=== PATIENT | male | born 1965 | race Hispanic/Latino ===

== ENCOUNTER → 2017-08-25 | Day surgery (SDC) | payer OTHER ==
[2017-08-22 13:17] LABS: BASOPHILS % 0.7 % (0.0-1.0); EOSINOPHILS # (AUTO) 0.2 (0.0-0.4); EOSINOPHILS % 3.5 % (0.0-6.0); HEMATOCRIT 40.9 % (38.2-49.6); HEMOGLOBIN 14.5 g/dL (14.0-18.0); MEAN CORPUSCULAR HEMOGLOBIN 31.5 pg (28-32); MEAN CORPUSCULAR HGB CONC 35.5 g/dL (31-35); MEAN CORPUSCULAR VOLUME 88.7 fL (81-99); MONOCYTES # (AUTO) 0.4 (0.2-0.8); MONOCYTES % 6.8 % (4.4-11.3); NEUTROPHILS # (AUTO) 2.4 (2.1-6.9); NEUTROPHILS % 39.8 % (38.7-80.0); PLATELET COUNT 231 x10e3/uL (140-360); RED BLOOD COUNT 4.61 x10e6/uL (4.3-5.7); RED CELL DISTRIBUTION WIDTH 12.3 % (11.7-14.4)
[~2017-08-25] MED LIST: ASPIR-LOW81 MG; CLOPIDOGREL75 MG PO; CRESTOR10 MG; DIAZEPAM10 MG; FENTANYL CITRATE/PF 100MCG/2 ML INJ ONE; HYOSCYAMINE SULFATE 0.5 MG/ML AMP ONE; LIDOCAINE HCL 2% LOCAL INJ 5 ML SDV VIAL INJ ONE; LOSARTAN; METOPROLOL SUCC25 MG; MIDAZOLAM HCL 2 MG/2 ML VIAL ONE; PROPOFOL IV EMULSION 10 MG/ML 50 ML VIAL ONE
--- NOTE | 2017-08-25 15:34 | Operative Report ---
DATE OF PROCEDURE: August 25, 2017 REFERRING PHYSICIAN: Dr. Erasmo Vargas PROCEDURES PERFORMED 1. Esophagogastroduodenoscopy with biopsies. 2. Colonoscopy with polypectomy. INDICATIONS FOR EGD: History of heartburn and indigestion. INDICATIONS FOR COLONOSCOPY: Colorectal cancer screening. MEDICATION: Patient was done under MAC. Please see anesthesiologist's note. PROCEDURE: With the patient in the left lateral decubitus position, the flexible fiberoptic Olympus gastroscope was introduced into the esophagus under direct visualization without any difficulty. There was some patchy erythema noted in the distal esophagus. A minute tongue of velvety red mucosa was noted to extend proximally from the GE junction. Biopsies were obtained to rule out Jacob's. The scope was then advanced with ease into the stomach. Mucosa overlying the antrum and the body revealed some patchy intense erythema and low-grade to moderate edema, and biopsies were obtained and sent to stain for H. pylori. The pylorus was of normal contour and shape. It was intubated with ease. The scope was advanced all the way to the 2nd portion of the duodenum. The scope was then withdrawn slowly. Mucosa overlying the proximal 2nd portion and the duodenal bulb grossly appeared to be within normal limits. The scope was then withdrawn back into the stomach and retroflexed. Mucosa overlying the fundus and cardia appeared to be within normal limits. The scope was then straightened out. The stomach was decompressed. The scope was subsequently withdrawn. Patient tolerated the procedure well. IMPRESSION 1. Distal esophagitis, mild. 2. Rule out Jacob's esophagus. 3. Gastritis, biopsied. Biopsies sent to stain for Helicobacter pylori. PLAN: Follow up histology. Initiate Protonix 40 mg 1 p.o. q.a.m. a.c. Patient was then turned around. After adequate lubrication of the anal canal, a flexible fiberoptic Olympus colonoscope was inserted into the rectum with ease and advanced all the way to the cecum. One polyp was snared from the cecum. The scope was then withdrawn slowly. Mucosa overlying the ascending colon appeared to be within normal limits. One polyp was hot biopsied from the transverse colon. The descending colon grossly appeared to be within normal limits. Diverticular disease was noted to involve the distal descending and the sigmoid colon. Four polyps were hot biopsied from the rectum. The scope was then retroflexed into the distal rectum and small internal hemorrhoids, none actively bleeding. The scope was then straightened out. It was subsequently withdrawn. Patient tolerated the procedure well. IMPRESSION 1. Cecal polyp, snared. 2. Transverse colon polyp, hot biopsied. 3. Diverticulosis. 4. Rectal polyps times 4, hot biopsied. 5. Internal hemorrhoids, none actively bleeding. PLAN: Follow up histology. Initiate high-fiber and low-fat diet. Initiate high-fiber supplement. Patient will need a followup colonoscopy in 3 years. Job#: [id number] [place] cc:ERASMO VARGAS MD
== END | disposition home or self-care (01) ==
LOC: OR 10:59
PROVIDERS: ATTEND Internal Medicine Gastroenterology
DX: Z12.11 Encounter for screening for malignant neoplasm of colon (principal); K63.5 Polyp of colon; K62.1 Rectal polyp; K29.50 Unspecified chronic gastritis without bleeding; K21.9 Gastro-esophageal reflux disease without esophagitis; K20.9 Esophagitis, unspecified; K57.30 Diverticulosis of large intestine without perforation or abscess without bleeding; K64.8 Other hemorrhoids; B96.81 Helicobacter pylori [H. pylori] as the cause of diseases classified elsewhere; I25.10 Atherosclerotic heart disease of native coronary artery without angina pectoris; G47.33 Obstructive sleep apnea (adult) (pediatric); I25.2 Old myocardial infarction; I10 Essential (primary) hypertension; Z01.810 Encounter for preprocedural cardiovascular examination; Z01.812 Encounter for preprocedural laboratory examination; Z79.02 Long term (current) use of antithrombotics/antiplatelets; Z79.82 Long term (current) use of aspirin; Z68.32 Body mass index [BMI] 32.0-32.9, adult; Z95.5 Presence of coronary angioplasty implant and graft
CPT/HCPCS: 36415; 43239; 45384; 45385; 85025; 93005; J1980; J2001; J2250

== ENCOUNTER → 2019-03-15 | Day surgery (SDC) | payer OTHER ==
[2019-03-08 15:30] LABS: BASOPHILS % 0.6 % (0.0-1.0); EOSINOPHILS # (AUTO) 0.1 (0.0-0.4); EOSINOPHILS % 2.5 % (0.0-6.0); HEMATOCRIT 42.2 % (38.2-49.6); HEMOGLOBIN 14.6 g/dL (14.0-18.0); LYMPHOCYTES # (AUTO) 2.5 (1.0-3.2); LYMPHOCYTES % 47.9 % (18.0-39.1); MEAN CORPUSCULAR HEMOGLOBIN 31.5 pg (28-32); MEAN CORPUSCULAR HGB CONC 34.6 g/dL (31-35); MEAN CORPUSCULAR VOLUME 90.9 fL (81-99); MONOCYTES # (AUTO) 0.4 (0.2-0.8); MONOCYTES % 6.8 % (4.4-11.3); NEUTROPHILS # (AUTO) 2.2 (2.1-6.9); PLATELET COUNT 223 x10e3/uL (140-360); RED BLOOD COUNT 4.64 x10e6/uL (4.3-5.7); RED CELL DISTRIBUTION WIDTH 12.9 % (11.7-14.4)
[~2019-03-15] MED LIST changes: +DIPHENHYDRAMINE HCL INJ 50 MG/ML VIAL ONE; +GLYBURIDE-METF1 EACH PO; -HYOSCYAMINE SULFATE 0.5 MG/ML AMP ONE; -LIDOCAINE HCL 2% LOCAL INJ 5 ML SDV VIAL INJ ONE; +METOPROLOL SUCC25 MG PO
--- OUTSIDE RECORDS SUMMARY | 2019-03-15 12:15 | XMS REPORT | Clinical Summary ---
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 9 Active metoprolol (TOPROL-XL) 25 Take 25 mg by 0 /28/201 MG 24 hr tablet mouth daily . 9 Active rosuvastatin (CRESTOR) 10 Take 10 mg by 0 10/05/201 MG tablet mouth daily . 9 Active aspirin 81 MG EC tablet Take 81 mg by 0 mouth daily. Active losartan (COZAAR) 50 MG Take 50 mg by 0 tablet mouth daily. Active metFORMIN (GLUCOPHAGE) Take 1 tablet 60 tablet 0 500 MG tablet (500 mg 9 total) by mouth 2 (two) times daily with breakfast and dinner Note change in diabetes medication. 10/07/2018 Discontinued glyBURIDE-metFORMIN 1 tablet po 1 (GLUCOVANCE) 2.5-500 mg BID 8 per tablet Active Problems Problem Noted Date Chest pain 10/07/2018 Coronary artery disease involving [place] coronary artery of [place] heart 10/07/2018 without angina pectoris Encounters Care Team Description Date Type Specialty Cortez Chambers MD Atherosclerosis of coronary artery of [place] heart with angina pectoris, unspecified vessel or lesion type (HCC) (Primary Dx) 10/09/2018 Outside Orders Central Scheduling System, Provider Not In 10/09/2018 Outside Orders Central Scheduling Vu, Trien B., MD Stanton, Fang-Monica, MD Unstable angina (HCC) (Primary Dx); Coronary artery disease involving [place] coronary artery, angina presence unspecified, unspecified whether [place] or transplanted heart; Hypertension, unspecified type; History of diabetes mellitus; Lightheadedness; Unstable angina pectoris (HCC) 10/05/2018 Hospital Cardiac Intensive Care - Encounter 10/07/2018 10/05/2018 Orders Only General Internal Medicine 10/05/2018 Travel after 03/14/2018 Social History Date Tobacco Use Types Packs/Day Years Used Never Assessed Sex Assigned at Date Recorded Not on file Industry Job Start Date Occupation Not on file Not on file Not on file Travel End Travel History Travel Start No recent travel history available. Last Filed Vital Signs Time Taken Vital Sign Reading 10/07/2018 11:00 AM [facility]RAFTER [facility] Blood Pressure 109/76 10/07/2018 12:00 PM [facility] Pulse 71 10/07/2018 8:00 AM [facility]AIL Temperature 36.7 C (98 F) 10/07/2018 12:00 PM [facility]AIL Respiratory Rate 15 10/07/2018 12:00 PM [facility]AIL Oxygen Saturation 97% 10/05/2018 5:23 PM [facility]AIL Inhaled Oxygen 96% Concentration 10/07/2018 6:00 AM [facility]AIL Weight 94.1 kg (207 lb 7.3 oz) 10/05/2018 4:36 PM [facility] [employer] Height 172.7 cm (5' 8") 10/07/2018 6:00 AM [facility]AIL Body Mass Index 31.54 Plan of Treatment Not on file Procedures Comments Procedure Name Priority Date/Time Associated Diagnosis REPORT OF PROCEDURE - 10/24/2018 ENDOSCOPY SCAN 10:31 AM [facility]AIL RHYTHM STRIP - SCAN 10/24/2018 10:31 AM [facility]AIL POCT-GLUCOSE METER Routine 10/07/2018 8:01 AM D[facility]TER DETAIL APTT Routine 10/07/2018 6:05 AM [facility]AIL BASIC METABOLIC PANEL (7) Routine 10/07/2018 6:05 AM [facility]AIL APTT Routine 10/07/2018 12:[address] BRAIN WITHOUT IV Routine 10/06/2018 CONTRAST 11:57 PM [facility]AIL POCT-GLUCOSE METER Routine 10/06/2018 9:06 PM [facility] [employer]AIL POCT-GLUCOSE METER Routine 10/06/2018 5:49 PM [facility]AIL APTT Routine 10/06/2018 5:35 PM [facility]AIL RAPID DRUG SCREEN, URINE Routine 10/06/2018 3:34 PM [facility]AIL ECHOCARDIOGRAM REPORT - 10/06/2018 SCAN 12:50 PM [facility]AIL NM CARDIAC PET PERFUSION JOSHUA 10/06/2018 REST AND/OR STRESS 12:13 PM [facility]AIL TREADMILL Routine 10/06/2018 TOLERANCE(NON-NUCLEAR 11:48 AM DRAFTER DETAIL TREADMILL) ECG 12-LEAD Routine 10/06/2018 11:45 AM [facility]TER DETAIL ECG 12-LEAD Routine 10/06/2018 11:45 AM [facility]TER [facility]AIL Procedure Note - Interface, External Ris In - 10/06/2018 12:00 PM [facility]TER [facility]AIL Ventricula r Rate 71 BPM Atrial Rate 71 BPM P-R Interval 198 ms QRS Duration 90 ms Q-T Interval 404 ms QTC Calculatio n(Bazett) 439 ms P [place] 68 degrees R [place] 33 degrees T [place] 69 degrees Normal sinus rhythm Nonspecifi c ST and T wave abnormalit y Abnormal ECG CBC W/PLT COUNT & AUTO Routine 10/06/2018 DIFFERENTIAL 6:12 AM [facility]TER [facility]AIL APTT Routine 10/06/2018 6:12 AM [facility]AIL CBC W/PLT COUNT & AUTO Routine 10/06/2018 DIFFERENTIAL 6:12 AM [facility]AIL MAGNESIUM Routine 10/06/2018 6:12 AM [facility]AIL LIPID PANEL Routine 10/06/2018 6:12 AM [facility]AIL HEMOGLOBIN A1C AP Routine 10/06/2018 6:12 AM [facility]AIL HEPATIC FUNCTION PANEL Routine 10/06/2018 6:12 AM [facility]AIL BASIC METABOLIC PANEL (7) Routine 10/06/2018 6:12 AM [facility]AIL 2D ECHO W/ DOPPLER Routine 10/06/2018 (CW/PW/COLOR) 3:04 AM [facility]AIL CAROTID DOPPLER BILATERAL Routine 10/05/2018 11:29 PM [facility]AIL APTT Routine 10/05/2018 11:19 PM [facility]AIL TROPONIN I Routine 10/05/2018 11:19 PM [facility]AIL POCT-GLUCOSE METER Routine 10/05/2018 11:17 PM [facility]AIL XR CHEST 1 VIEW STAT 10/05/2018 PORTABLE/BEDSIDE 5:22 PM [facility]AIL ED ECG INTERPRETATION Routine 10/05/2018 4:50 PM [facility]AIL CBC W/PLT COUNT & AUTO STAT 10/05/2018 DIFFERENTIAL 4:49 PM [facility]AIL CREATINE KINASE (CK) STAT 10/05/2018 4:49 PM [facility]AIL B-TYPE NATRIURETIC FACTOR STAT 10/05/2018 (BNP) 4:49 PM [facility]TER [facility]AIL PT/APTT STAT 10/05/2018 4:49 PM [facility]AIL CBC W/PLT COUNT & AUTO STAT 10/05/2018 DIFFERENTIAL 4:49 PM [facility]TER DETAIL TROPONIN I STAT 10/05/2018 4:49 PM [facility]AIL MAGNESIUM STAT 10/05/2018 4:49 PM [facility]AIL BASIC METABOLIC PANEL (7) STAT 10/05/2018 4:49 PM [facility]AIL ECG 12-LEAD Routine 10/05/2018 4:40 PM [facility]AIL Procedure Note - Interface, External Ris In - 10/05/2018 5:08 PM [facility]AIL Ventricula r Rate 87 BPM Atrial Rate 87 BPM P-R Interval 166 ms QRS Duration 90 ms Q-T Interval 364 ms QTC Calculatio n(Bazett) 438 ms P [place] 35 degrees R [place] -55 degrees T [place] -4 degrees Normal sinus rhythm Indetermin ate axis Inferior infarct , age undetermin ed Anterolate ral infarct , age undetermin ed Abnormal ECG ECG 12-LEAD STAT 10/05/2018 4:40 PM [facility]TER DETAIL after 03/14/2018 Results * EKG-SCANNED (10/24/2018 10:31 AM [facility]) Narrative Performed At * RHYTHM STRIP - SCAN (10/24/2018 10:31 AM [facility]AIL) Narrative Performed At * POC-Glucose meter (10/07/2018 8:01 AM [facility]TER [facility]AIL) Only the most recent of 4 results within the time period is included. POC-Glucose Meter 133 (H)Comment: TESTED AT 70 - 110 mg/dL [address] [id number] Specimen Blood Performing Organization Address City/[facility] Phone Number [address] [phone] [facility] * aPTT (10/07/2018 6:05 AM DRAFTER DETAIL) Only the most recent of 5 results within the time period is included. PTT 89.9 (H) 22.5 - 36.0 seconds [facility] Specimen Blood Performing Organization Address City/[facility] Phone Number [address] [phone] [facility] * Basic Metabolic Panel (10/07/2018 6:05 AM [facility]TER DETAIL) Only the most recent of 3 results within the time period is included. Sodium 141 136 - 145 meq/L [facility] Potassium 3.9 3.5 - 5.1 meq/L [facility] Chloride 107 98 - 107 meq/L [facility] CO2 27 22 - 29 meq/L [facility] BUN 13 7 - 21 mg/dL [facility] Creatinine 0.98 0.57 - 1.25 mg/dL [facility] Glucose 136 (H) 70 - 105 mg/dL [facility] Calcium 8.8 8.4 - 10.2 mg/dL [facility] EGFR 80Comment: ESTIMATED GFR IS mL/min/1.73 sq m [facility] NOT ACCURATE CREATININE [facility] CLEARANCE IN PREDICTING GLOMERULAR FILTRATION RATE. ESTIMATED GFR IS NOT APPLICABLE FOR DIALYSIS PATIENTS. Specimen Blood Performing Organization Address City/State/Zipcode Phone Number [facility] [address] [place] [address] MEDICAL CENTER * CT brain without IV contrast (10/06/2018 11:57 PM [facility]TER [employer]AIL) Specimen Narrative Performed At FINAL REPORT [facility] RIS CT, BRAIN, WITHOUT CONTRAST CLINICAL INDICATION:dizziness COMPARISON: None TECHNIQUE:Noncontrast axial CT imaging of the brain and skull. DOSE REDUCTION: Dose modulation, iterative reconstruction, and/or weight-based adjustment of the mA/kV was utilized to reduce the radiation dose to as low as reasonably achievable. FINDINGS: No intracranial hemorrhage, midline shift or mass effect. Midline structures are normally developed. Mild chronic microvascular ischemic changes of the periventricular and subcortical white matter present. Punctate focus of mineralization is identified adjacent to the left lateral ventricle, of uncertain significance but perhaps related to prior granulomatous disease or intraventricular infection. The vasogenic edema to suggest acute infection. No hydrocephalus. Orbits are within normal limits. No obstructive paranasal sinus disease. IMPRESSION: No acute intracranial findings If there is persistent clinical concern for intracranial pathology, MR examination is recommended for further characterization. Signed: Reagan Montez MD Report Verified Date/Time:10/07/2018 01:39:44 Reading Location: [address] Neuro Reading Room Procedure Note Interface, External Ris In - 10/07/2018 1:41 AM DRAFTER DETAIL FINAL REPORT CT, BRAIN, WITHOUT CONTRAST CLINICAL INDICATION: dizziness COMPARISON: None TECHNIQUE: Noncontrast axial CT imaging of the brain and skull. DOSE REDUCTION: Dose modulation, iterative reconstruction, and/or weight-based adjustment of the mA/kV was utilized to reduce the radiation dose to as low as reasonably achievable. FINDINGS: No intracranial hemorrhage, midline shift or mass effect. Midline structures are normally developed. Mild chronic microvascular ischemic changes of the periventricular and subcortical white matter present. Punctate focus of mineralization is identified adjacent to the left lateral ventricle, of uncertain significance but perhaps related to prior granulomatous disease or intraventricular infection. The vasogenic edema to suggest acute infection. No hydrocephalus. Orbits are within normal limits. No obstructive paranasal sinus disease. IMPRESSION: No acute intracranial findings If there is persistent clinical concern for intracranial pathology, MR examination is recommended for further characterization. Signed: Reagan Mnotez MD Report Verified Date/Time: 10/07/2018 01:39:44 Reading Location: [facility] [id number] Neuro Reading Room Performing Organization Address [facility] Phone Number GE RIS * Rapid drug screen, urine (10/06/2018 3:34 PM [facility]TER DETAIL) Barbiturate Screen Negative Negative [facility] Benzodiazepine Screen Negative Negative [facility] Cocaine (Metab.) Screen Negative Negative [facility] Methadone Screen Negative Negative [facility] Opiate Screen Negative Negative [facility] Cannabinoid Screen Negative Negative [facility] Amph/Methamph Screen Negative Negative [facility] Phencyclidine Screen Negative Negative [facility] Oxycodone Screen Negative Negative [facility] Specimen Urine Narrative Performed At [facility] Cocaine 300 ng/mL [facility] Rtuhdlhgdbi73 ng/mL Rshnzaayozlock206 ng/mL Barbiturate 200 ng/mL Ofdmhcpouuruo85 ng/mL Fgvuqc600 ng/mL Methadone 300 ng/mL Amphetamine/ 1000 ng/mL Methamphetamine Oxycodone 300 ng/mL This assay provides an unconfirmed qualitative test result for the clinical management of patients in emergency situations. Chain of custody not maintained. Some yvln-ckf-padomel medications, as well as adulterants, may cause inaccurate results. Clinical correlation should be applied. A more comprehensive drug screen or confirmation of a detected drug may be performed upon request. Performing Organization Address City/[facility]/Zipcode Phone Number [facility] [address] [place] [address] [facility] * ECHOCARDIOGRAM REPORT - SCAN (10/06/2018 12:50 PM [facility]TER [facility]AIL) Narrative Performed At * NM myocardial perfusion PET (rest and stress) (10/06/2018 12:13 PM [facility]TER DETAIL) Specimen Narrative Performed At FINAL REPORT [employer] PROCEDURE: Rest/Stress MYOCARDIAL PERFUSION PET with regadenoson\\XA9\\ CPT CODE: 50348 INDICATION: Chest pain HISTORY: Cardiac risk factors: Diabetes, hypertension, hyperlipidemia. Other cardiovascular history: Known CAD, PTCA. Current cardiovascular-related medications: Crestor, aspirin, Plavix, losartan, metoprolol. PROTOCOL: Limited low-dose CT imaging was performed for attenuation correction. 40.0 mCi of Rb-82 chloride was injected iv at rest, and gated PET (positron emission tomography) images were obtained. Subsequently, 40.1 mCi of Rb-82 chloride was injected iv at expected peak pharmacologic effect, and gated PET images were obtained. PRELIMINARY STRESS TEST DATA FROM NONINVASIVE CARDIOLOGY: Pharmacologic stress was by 10-second iv infusion of 0.4 mg of regadenoson. Radiotracer was injected 30 seconds after start of stress. Heart rate was 71 beats/min at rest and 104 beats/min (61% of MPHR) at tracer injection. BP was 124/71 mmHg at rest and 125/72 mmHg at tracer injection. Stress was stopped for predetermined endpoint. The patient experienced dyspnea; treatment was not required. Preliminary ECG evaluation revealed normal sinus rhythm, nonspecific ST and T wave abnormality at rest and no ischemic changes with stress. (Final ECG interpretation and other stress and monitoring data are reported separately by Cardiology.) IMAGING FINDINGS: Study quality is good. Images obtained after rest and stress injections show normal LV activity. LV and RV volumes appear normal. Gated images obtained at rest and with stress show normal LV wall motion and thickening. LVEF at rest is 69%. LVEF at stress is greater than 70%. IMPRESSION: 1. Normal study.2. Appropriate pharmacologic stress.3. Normal myocardial perfusion.4. Normal resting LV function. No deterioration of function is noted with pharmacologic stress.5. Normal extracardiac tracer distribution.6. The previous [facility] study on 07/10/2017 was also normal. NONINVASIVE RISK STRATIFICATION: The above findings are considered low risk (<1% annual mortality rate) based on the following criterion: - Normal or small myocardial perfusion defect at rest or with stress (JACC. 2012;59(9):655-31.) Signed: Austin Lioa MD Report Verified Date/Time:10/06/2018 17:01:02 Reading Location: [address] [id number] [facility] Reading Room Procedure Note Interface, External Ris In - 10/06/2018 5:03 PM DRAFTER DETAIL FINAL REPORT PROCEDURE: Rest/Stress MYOCARDIAL PERFUSION PET with regadenoson\\XA9\\ CPT CODE: 53092 INDICATION: Chest pain HISTORY: Cardiac risk factors: Diabetes, hypertension, hyperlipidemia. Other cardiovascular history: Known CAD, PTCA. Current cardiovascular-related medications: Crestor, aspirin, Plavix, losartan, metoprolol. PROTOCOL: Limited low-dose CT imaging was performed for attenuation correction. 40.0 mCi of Rb-82 chloride was injected iv at rest, and gated PET (positron emission tomography) images were obtained. Subsequently, 40.1 mCi of Rb-82 chloride was injected iv at expected peak pharmacologic effect, and gated PET images were obtained. PRELIMINARY STRESS TEST DATA FROM NONINVASIVE CARDIOLOGY: Pharmacologic stress was by 10-second iv infusion of 0.4 mg of regadenoson. Radiotracer was injected 30 seconds after start of stress. Heart rate was 71 beats/min at rest and 104 beats/min (61% of MPHR) at tracer injection. BP was 124/71 mmHg at rest and 125/72 mmHg at tracer injection. Stress was stopped for predetermined endpoint. The patient experienced dyspnea; treatment was not required. Preliminary ECG evaluation revealed normal sinus rhythm, nonspecific ST and T wave abnormality at rest and no ischemic changes with stress. (Final ECG interpretation and other stress and monitoring data are reported separately by Cardiology.) IMAGING FINDINGS: Study quality is good. Images obtained after rest and stress injections show normal LV activity. LV and RV volumes appear normal. Gated images obtained at rest and with stress show normal LV wall motion and thickening. LVEF at rest is 69%. LVEF at stress is greater than 70%. IMPRESSION: 1. Normal study. 2. Appropriate pharmacologic stress. 3. Normal myocardial perfusion. 4. Normal resting LV function. No deterioration of function is noted with pharmacologic stress. 5. Normal extracardiac tracer distribution. 6. The previous [facility] study on 07/10/2017 was also normal. NONINVASIVE RISK STRATIFICATION: The above findings are considered low risk (<1% annual mortality rate) based on the following criterion: - Normal or small myocardial perfusion defect at rest or with stress (JAC. 2012;59(9):423-03.) Signed: Austin Liao MD Report Verified Date/Time: 10/06/2018 17:01:02 Reading Location: [address] Reading Room Performing Organization Address City/State/[facility] Phone Number GE RIS * Treadmill tolerance(Non-Nuclear Treadmill) (10/06/2018 11:48 AM DRAFTER DETAIL) Specimen Narrative Performed At Protocol Name Regadenoson GE MUSE Time In Exercise Phase 00:01:00 Max. Systolic BP 125 mmHg Max Diastolic BP 72 mmHg Max Heart Rate 104 BPM Max Predicted Heart Rate 168 BPM Reason For Termination Predetermined end point Reason for Test Chest Pain Target HR Formula (220 - Age)*100% Arrhythmias none Resting ECG Normal sinus rhythm Nonspecific ST and T wave abnormality ST Changes No Significant Changes Overall Impression Indeterminate due to pharmacological stress Chest Pain none HR Response To Exercise BP Response To Exercise crestor,asa,plavix,losartan,metorpolol Confirmed by fellow Mitul Joiner ([id number]) on 10/06/2018 12:59:09 PM Confirmed by Jorge L BERNAL MICHAEL ([id number]) on 10/08/2018 6:57:43 AM Procedure Note Interface, External Ris In - 10/08/2018 6:57 AM DRAFTER DETAIL Protocol Name Regadenoson Time In Exercise Phase 00:01:00 Max. Systolic BP 125 mmHg Max Diastolic BP 72 mmHg Max Heart Rate 104 BPM Max Predicted Heart Rate 168 BPM Reason For Termination Predetermined end point Reason for Test Chest Pain Target HR Formula (220 - Age)*100% Arrhythmias none Resting ECG Normal sinus rhythm Nonspecific ST and T wave abnormality ST Changes No Significant Changes Overall Impression Indeterminate due to pharmacological stress Chest Pain none HR Response To Exercise BP Response To Exercise crestor,asa,plavix,losartan,metorpolol Confirmed by fellow Mitul Joiner ([id number]) on 10/06/2018 12:59:09 PM Confirmed by Jorge L BERNAL MICHAEL ([id number]) on 10/08/2018 6:57:43 AM Performing Organization Address City/State/[facility] Phone Number [facility] DANIELLA * ECG 12 lead (10/06/2018 11:45 AM DRAFTER DETAIL) Only the most recent of 2 results within the time period is included. Specimen Narrative Performed At Ventricular Rate 71 BPM GE MUSE Atrial Rate 71 BPM P-R Interval 198 ms QRS Duration 90 ms Q-T Interval 404 ms QTC Calculation(Bazett) 439 ms P [place] 68 degrees R [place] 33 degrees T [place] 69 degrees Normal sinus rhythm Nonspecific ST and T wave abnormality Abnormal ECG 05 Oct 2018 QRS amplitude decreased in the limb leads T waves are no longer negative inferior leads Nonspecific T wave abnormality improved in V5-V6 Most probably limb lead misplacement in the previous ECG Please repeat Confirmed by MD LUCAS, IRAIDA ([id number]) on 10/06/2018 2:41:56 PM Procedure Note Interface, External Ris In - 10/06/2018 2:42 PM DRAFTER DETAIL Ventricular Rate 71 BPM Atrial Rate 71 BPM P-R Interval 198 ms QRS Duration 90 ms Q-T Interval 404 ms QTC Calculation(Bazett) 439 ms P [place] 68 degrees R [place] 33 degrees T [place] 69 degrees Normal sinus rhythm Nonspecific ST and T wave abnormality Abnormal ECG 05 Oct 2018 QRS amplitude decreased in the limb leads T waves are no longer negative inferior leads Nonspecific T wave abnormality improved in V5-V6 Most probably limb lead misplacement in the previous ECG Please repeat Confirmed by MD LUCAS, IRAIDA ([id number]) on 10/06/2018 2:41:56 PM Performing Organization Address [facility] Phone Number [facility] MUSE * CBC with platelet count + automated diff (10/06/2018 6:12 AM DRAFTER DETAIL) Only the most recent of 2 results within the time period is included. WBC 5.9 3.5 - 10.5 K/L [facility] RBC 4.64 4.63 - 6.08 M/L [facility] Hemoglobin 14.6 13.7 - 17.5 GM/DL [facility] Hematocrit 43.0 40.1 - 51.0 % [facility] MCV 92.7 (H) 79.0 - 92.2 fL [facility] MCH 31.5 25.7 - 32.2 pg [facility] MCHC 34.0 32.3 - 36.5 GM/DL [facility] RDW 12.6 11.6 - 14.4 % [facility] Platelets 180 150 - 450 K/CU MM [facility] MPV 9.2 (L) 9.4 - 12.4 fL [facility] nRBC 0 0 - 0 /100 WBC [facility] % Neutros 40 % [facility] % Lymphs 46 % [facility] % Monos 9 % [facility] % Eos 4 % [facility] % Baso 1 % [facility] # Neutros 2.35 1.78 - 5.38 K/L [facility] # Lymphs 2.66 1.32 - 3.57 K/L [facility] # Monos 0.52 0.30 - 0.82 K/L [facility] # Eos 0.25 0.04 - 0.54 K/L [facility] # Baso 0.04 0.01 - 0.08 K/L [facility] Immature 1 0 - 1 % [facility] Granulocytes-Relative [facility] Specimen Blood Performing Organization Address City/State/Zipcode Phone Number [facility] [address] [place] [address] MEDICAL CENTER * Magnesium (10/06/2018 6:12 AM DRAFTER DETAIL) Only the most recent of 2 results within the time period is included. Magnesium 2.5Comment: Specimen slightly 1.6 - 2.6 mg/dL [facility] hemolyzed [facility] Specimen Blood Performing Organization Address City/State/Zipcode Phone Number [facility] [address] [place] [phone] [facility] * Hemoglobin A1c (10/06/2018 6:12 AM DRAFTER DETAIL) Hemoglobin A1C 6.4 (H) 4.3 - 6.1 % [facility] Specimen Blood Performing Organization Address [facility]/Zipcode Phone Number [place] [phone] [place] [address] [facility] * Hepatic function panel (10/06/2018 6:12 AM DRAFTER DETAIL) Protein, Total 6.6Comment: Specimen slightly 6.0 - 8.3 gm/dL [facility] Albumin 3.7Comment: Specimen slightly 3.5 - 5.0 g/dL [facility] Total Bilirubin 1.2Comment: Specimen slightly 0.2 - 1.2 mg/dL [facility] Bilirubin, Direct 0.4Comment: Specimen slightly 0.1 - 0.5 mg/dL [facility] Alkaline Phosphatase 36 (L) 40 - 150 U/L [facility] AST 19Comment: Specimen slightly 5 - 34 U/L [facility] ALT 28Comment: Specimen slightly 6 - 55 U/L [facility] Specimen Blood Performing Organization Address City/State/Zipcode Phone Number [facility] [address] [place] [address] [facility] * Lipid panel (10/06/2018 6:12 AM DRAFTER DETAIL) Triglycerides 156Comment: Specimen slightly mg/dL [facility] Cholesterol 140Comment: Specimen slightly mg/dL [facility] HDL 36 mg/dL [facility] LDL Calculated 73 mg/dL [facility] Specimen Blood Narrative Performed At Triglyceride Reference Range: [facility] Low Risk <150 [facility] [id number] High Risk 200-499 Very High Risk>=500 Cholesterol Reference Range: Low Risk <200 [id number] High Risk>240 HDL Cholesterol Reference Range: Low Risk >=60 High Risk <40 LDL Cholesterol Reference Range: Optimal<100 Near Syyhndb594-004 Jabizaadum453-444 [id number] Very High >=190 Performing Organization Address City/State/Zipcode Phone Number [facility] [address] [place] [address] MEDICAL CENTER * 2D Echo W/Doppler(CW/PW/Color) (10/06/2018 3:04 AM DRAFTER DETAIL) Ejection Fraction [facility] Specimen Narrative Performed At Transthoracic Echocardiography Report (TTE) [facility] ECHO HEARTLAB Demographics [facility]ITALStarForce TechnologiesR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 Clinical History CAD, DM, HLD, HTN HGB 15.5 HCT 44 % Height: 68 inches Weight: 94.35 kg (208 lbs) BSA: 2.08 m^2 BMI: 31.63 kg/m^2 HR: 69 bpm BP: 144/92 mmHg Summary The left ventricle is chamber size (by vol index) is normal (male - LVED vol - 34-74ml/m2). Mild concentric LV hypertrophy. All of the LV segments contract normally . Global LV systolic function normal . Estimated LVEF by qualitative assessment is normal (55-60%) . Grade 1 diastolic dysfunction (impaired relaxation and low-normal LA pressure). No evidence of pericardial effusion. The estimated RA pressure by IVC dynamics 5-10mmHg . A trace of tricuspid regurgitation. Unable to estimate peak systolic PA pressure; inadequate TR velocity signal. Signature Findings Left Ventricle The left ventricle is chamber size (by vol index) is normal (male - LVED vol - 34-74ml/m2). Mild concentric LV hypertrophy. All of the LV segments contract normally . Global LV systolic function normal . Estimated LVEF by qualitative assessment is normal (55-60%) . Grade 1 diastolic dysfunction (impaired relaxation and low-normal LA pressure). Left AtriumLA size is normal . Right VentricleNormal right ventricle structure and function. Right Atrium Normal right atrium. Aortic Valve Normal AoV structure and function. Mitral Valve Normal MV structure and function. Tricuspid ValveA trace of tricuspid regurgitation. Unable to estimate peak systolic PA pressure; inadequate TR velocity signal. Pulmonic Valve Normal PV structure and function by limited views and Doppler. AortaAortic root size (SInus of Valsalva diameter) is normal . PericardiumNo evidence of pericardial effusion. IVC/SVC/PA/PV/PleuralThe estimated RA pressure by IVC dynamics 5-10mmHg . Chambers/Structures Left Atrium LA Dimension: 4.05 cmLA Area: 20.98 cm^2 LA Volume: 63.89 ml LA Vol. Index: 31 ml/m^2 Left Ventricle LVIDd: 4.23 cm LV Septum Diastolic: 1.25 cm LV PW Diastolic: 1.14 cm LVEDV Suárez's:118.31 ml LVESV Suárez's:48.34 ml LVEF Suárez's: 59.1 %LVEDVI: 57 ml/m^2 LVESVI: 23 ml/m^2 LVOT Diameter: 2.2 cm Aorta Ao Root S of Chandni.: 2.91 cm Doppler/Quantitative Measurements Mitral Valve MV Peak E-Wave: 0.58 m/sMV Peak A-Wave: 0.86 m/s E/A Ratio: 0.67 Peak Gradient: 1.35 mmHg Deceleration Time: 237.9 msec MV Isaiah. Peak: Tissue Doppler E' Lateral Velocity: 0.07 m/s A' Lateral Velocity: 0.1 m/s E/E': 7.87 LVOT Peak Velocity: 0.99 m/s Peak Gradient: 3.95 mmHg Mean Velocity: 0.62 m/s Mean Gradient: 1.86 mmHg LVOT Diameter: 2.2 cm LVOT VTI: 18.79 cm LVOT Area: 3.8 cm^2 LVOT SV:71.39 ml LVOT CO: 4.93 l/min LVOT CI: 2.37 l/min/m^2 Procedure Note Interface, External Ris In - 10/06/2018 12:21 PM DRAFTER DETAIL Transthoracic Echocardiography Report (TTE) Demographics Patient Name REYES ONEIL JR Date of Study 10/06/2018 KINDRA Gender Male Visit Number [id number] Race Other Room Number 6102 Number Date of 1965 Referring Tobias EID Physician STANTON GONZALEZ Age 53 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 Clinical History CAD, DM, HLD, HTN HGB 15.5 HCT 44 % Height: 68 inches Weight: 94.35 kg (208 lbs) BSA: 2.08 m^2 BMI: 31.63 kg/m^2 HR: 69 bpm BP: 144/92 mmHg Summary The left ventricle is chamber size (by vol index) is normal (male - LVED vol - 34-74ml/m2). Mild concentric LV hypertrophy. All of the LV segments contract normally . Global LV systolic function normal . Estimated LVEF by qualitative assessment is normal (55-60%) . Grade 1 diastolic dysfunction (impaired relaxation and low-normal LA pressure). No evidence of pericardial effusion. The estimated RA pressure by IVC dynamics 5-10mmHg . A trace of tricuspid regurgitation. Unable to estimate peak systolic PA pressure; inadequate TR velocity signal. Signature Findings Left Ventricle The left ventricle is chamber size (by vol index) is normal (male - LVED vol - 34-74ml/m2). Mild concentric LV hypertrophy. All of the LV segments contract normally . Global LV systolic function normal . Estimated LVEF by qualitative assessment is normal (55-60%) . Grade 1 diastolic dysfunction (impaired relaxation and low-normal LA pressure). Left Atrium LA size is normal . Right Ventricle Normal right ventricle structure and function. Right Atrium Normal right atrium. Aortic Valve Normal AoV structure and function. Mitral Valve Normal MV structure and function. Tricuspid Valve A trace of tricuspid regurgitation. Unable to estimate peak systolic PA pressure; inadequate TR velocity signal. Pulmonic Valve Normal PV structure and function by limited views and Doppler. Aorta Aortic root size (SInus of Valsalva diameter) is normal . Pericardium No evidence of pericardial effusion. IVC/SVC/PA/PV/Pleural The estimated RA pressure by IVC dynamics 5-10mmHg . Chambers/Structures Left Atrium LA Dimension: 4.05 cm LA Area: 20.98 cm^2 LA Volume: 63.89 ml LA Vol. Index: 31 ml/m^2 Left Ventricle LVIDd: 4.23 cm LV Septum Diastolic: 1.25 cm LV PW Diastolic: 1.14 cm LVEDV Suárez's:118.31 ml LVESV Suárez's:48.34 ml LVEF Suárez's: 59.1 % LVEDVI: 57 ml/m^2 LVESVI: 23 ml/m^2 LVOT Diameter: 2.2 cm Aorta Ao Root S of Chandni.: 2.91 cm Doppler/Quantitative Measurements Mitral Valve MV Peak E-Wave: 0.58 m/s MV Peak A-Wave: 0.86 m/s E/A Ratio: 0.67 Peak Gradient: 1.35 mmHg Deceleration Time: 237.9 msec MV Isaiah. Peak: Tissue Doppler E' Lateral Velocity: 0.07 m/s A' Lateral Velocity: 0.1 m/s E/E': 7.87 LVOT Peak Velocity: 0.99 m/s Peak Gradient: 3.95 mmHg Mean Velocity: 0.62 m/s Mean Gradient: 1.86 mmHg LVOT Diameter: 2.2 cm LVOT VTI: 18.79 cm LVOT Area: 3.8 cm^2 LVOT SV:71.39 ml LVOT CO: 4.93 l/min LVOT CI: 2.37 l/min/m^2 Performing Organization Address City/State/Zipcode Phone Number [facility] ECHO HEARTLAB MeographON [id number] * Carotid doppler bilateral (10/05/2018 11:29 PM DRAFTER DETAIL) Ejection Fraction [facility] ECHO HEARTLAB AskYouCKESSON CPACS Specimen Impressions Performed At Right Impression [facility] ECHO HEART[facility] 1. There is <50% diameter reduction (approximately 10% by 2-D measurement) MKSinimanesON ZYOMYXCS in the internal carotid artery with a peak velocity of 71.5/29.3 cm/sec and heterogeneous plaque. 2. There is non-occluding plaque in the external carotid artery. 3. There is non-occluding plaque in the common carotid artery. 4. The vertebral artery flow is antegrade and normal. 5. The subclavian artery is within normal limits where visualized. Left Impression 1. There is <50% diameter reduction (approximately 19% by 2-D measurement) in the internal carotid artery with a peak velocity of 70.9/22.9 cm/sec and heterogeneous plaque. 2. There is non-occluding plaque in the external carotid artery. 3. There is non-occluding plaque in the common carotid artery. 4. The vertebral artery flow is antegrade and normal. 5. The subclavian artery is within normal limits where visualized. Conclusions Summary Carotid duplex scanning and color flow imaging were performed bilaterally. The arteries were adequately visualized. The bilateral internal carotid arteries had <50% hemodynamically insignificant stenosis (approximately 10% by 2-D measurement on the right, approximately 19% by 2-D measurement on the left) with heterogeneous plaque. The vertebral artery flow was antegrade and normal bilaterally. The subclavian arteries were patent with normal flow bilaterally where visualized. Signature Velocities are measured in cm/s ; Diameters are measured in cm Carotid Right Measurements + +----+----+-----+ + + + !Location !PSV !EDV !Angle!%Stenosis 2D!%Stenosis Doppler!Tortuosity ! + +----+----+-----+ + + + !Prox CCA !77.4!16.4!60 !! ! ! + +----+----+-----+ + + + !Dist CCA !71.5!15.2!60 !! ! ! + +----+----+-----+ + + + !Prox ICA !71.5!29.3!60 !10% !<50% ! ! + +----+----+-----+ + + + !Dist ICA !75.6!37.5!60 !! ! ! + +----+----+-----+ + + + !Prox ECA !76.8!15.2!60 !! ! ! + +----+----+-----+ + + + !Vertebral!44.4!11.8!60 !! ! ! + +----+----+-----+ + + + !Prox Subclavian!94.3!!60 !! ! ! + +----+----+-----+ + + + - There is antegrade vertebral flow noted on the right side. - Additional Measurements:ICAPSV/CCAPSV 1.06.ICAEDV/CCAEDV 2.29. Carotid Left Measurements + +----+----+-----+ + + + !Location !PSV !EDV !Angle!%Stenosis 2D!%Stenosis Doppler!Tortuosity ! + +----+----+-----+ + + + !Prox CCA !78!17.6!60 !! ! ! + +----+----+-----+ + + + !Dist CCA !90.9!24.6!60 !! ! ! + +----+----+-----+ + + + !Prox ICA !70.9!22.9!60 !19% !<50% ! ! + +----+----+-----+ + + + !Dist ICA !86.8!42.8!60 !! ! ! + +----+----+-----+ + + + !Prox ECA !81.5!9.97!60 !! ! ! + +----+----+-----+ + + + !Vertebral!50.3!14.1!60 !! ! ! + +----+----+-----+ + + + !Prox Subclavian!121 !!60 !! ! ! + +----+----+-----+ + + + - There is antegrade vertebral flow noted on the left side. - Additional Measurements:ICAPSV/CCAPSV 0.95.ICAEDV/CCAEDV 2.43. Narrative Performed At LAB - Carotid Duplex Study [facility] HE[facility] Demographics [facility] Patient Name YARIEL Victorino LEIVA of Study10/05/2018 KINDRA [id number] Visit Number [id number] Gender Male Accession Number [id number] Date of Birth1965 ReferringHeakatelynn Swan [id number] MD Jayde SonographerChas Montenegro Interpreting Meaghan Zuniga MD Physician Procedure Type of Study: Cerebral: Carotid, CAROTID DOPPLER, BILATERAL. Indications for Study:Lightheaded. Patient Status:Routine. Study Location:Portable. Technical Quality:Adequate visualization. 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 Indications for Study:Lightheaded. Patient Status:Routine. Study Location:Portable. Technical Quality:Adequate visualization. Impressions Right Impression 1. There is <50% diameter reduction (approximately 10% by 2-D measurement) in the internal carotid artery with a peak velocity of 71.5/29.3 cm/sec and heterogeneous plaque. 2. There is non-occluding plaque in the external carotid artery. 3. There is non-occluding plaque in the common carotid artery. 4. The vertebral artery flow is antegrade and normal. 5. The subclavian artery is within normal limits where visualized. Left Impression 1. There is <50% diameter reduction (approximately 19% by 2-D measurement) in the internal carotid artery with a peak velocity of 70.9/22.9 cm/sec and heterogeneous plaque. 2. There is non-occluding plaque in the external carotid artery. 3. There is non-occluding plaque in the common carotid artery. 4. The vertebral artery flow is antegrade and normal. 5. The subclavian artery is within normal limits where visualized. Conclusions Summary Carotid duplex scanning and color flow imaging were performed bilaterally. The arteries were adequately visualized. The bilateral internal carotid arteries had <50% hemodynamically insignificant stenosis (approximately 10% by 2-D measurement on the right, approximately 19% by 2-D measurement on the left) with heterogeneous plaque. The vertebral artery flow was antegrade and normal bilaterally. The subclavian arteries were patent with normal flow bilaterally where visualized. Signature Velocities are measured in cm/s ; Diameters are measured in cm Carotid Right Measurements + +----+----+-----+ + + + !Location !PSV !EDV !Angle!%Stenosis 2D!%Stenosis Doppler!Tortuosity ! + +----+----+-----+ + + + !Prox CCA !77.4!16.4!60 ! ! ! ! + +----+----+-----+ + + + !Dist CCA !71.5!15.2!60 ! ! ! ! + +----+----+-----+ + + + !Prox ICA !71.5!29.3!60 !10% !<50% ! ! + +----+----+-----+ + + + !Dist ICA !75.6!37.5!60 ! ! ! ! + +----+----+-----+ + + + !Prox ECA !76.8!15.2!60 ! ! ! ! + +----+----+-----+ + + + !Vertebral !44.4!11.8!60 ! ! ! ! + +----+----+-----+ + + + !Prox Subclavian!94.3! !60 ! ! ! ! + +----+----+-----+ + + + - There is antegrade vertebral flow noted on the right side. - Additional Measurements:ICAPSV/CCAPSV 1.06.ICAEDV/CCAEDV 2.29. Carotid Left Measurements + +----+----+-----+ + + + !Location !PSV !EDV !Angle!%Stenosis 2D!%Stenosis Doppler!Tortuosity ! + +----+----+-----+ + + + !Prox CCA !78 !17.6!60 ! ! ! ! + +----+----+-----+ + + + !Dist CCA !90.9!24.6!60 ! ! ! ! + +----+----+-----+ + + + !Prox ICA !70.9!22.9!60 !19% !<50% ! ! + +----+----+-----+ + + + !Dist ICA !86.8!42.8!60 ! ! ! ! + +----+----+-----+ + + + !Prox ECA !81.5!9.97!60 ! ! ! ! + +----+----+-----+ + + + !Vertebral !50.3!14.1!60 ! ! ! ! + +----+----+-----+ + + + !Prox Subclavian!121 ! !60 ! ! ! ! + +----+----+-----+ + + + - There is antegrade vertebral flow noted on the left side. - Additional Measurements:ICAPSV/CCAPSV 0.95.ICAEDV/CCAEDV 2.43. Performing Organization Address City/State/Zipcode Phone Number [facility]ART[facility] MKCKESSON CPACS * Troponin I (10/05/2018 11:19 PM DRAFTER DETAIL) Only the most recent of 2 results within the time period is included. Troponin I <0.01 0.00 - 0.03 ng/mL [facility] Specimen Blood Narrative Performed At Troponin I (TnI) levels must be interpreted in the context of the presenting [facility] symptoms and the clinical findings. Elevated TnI levels indicate myocardial [facility] damage, but are not specific for ischemic heart disease. Elevated TnI levels are seen in patients with other cardiac conditions (including myocarditis and congestive heart failure), and slight TnI elevations occur in patients with other conditions, including sepsis, renal failure, acidosis, acute neurological disease, and persistent tachyarrhythmia. Performing Organization Address City/State/Zipcode Phone Number [facility] [address] [place] [address] [facility] * XR chest 1 view portable / bedside (10/05/2018 5:22 PM DRAFTER DETAIL) Specimen Narrative Performed At FINAL REPORT [employer] AP view of the chest dated 10/05/2018 CLINICAL INFORMATION: chest discomfort Comment:Heart is normal in size. Pulmonary vasculature is unremarkable. Lungs are clear. No pulmonary infiltrate or pleural effusion is present. Impression:No active cardiopulmonary disease. Signed: Denisse Martinez MD Report Verified Date/Time:10/05/2018 19:11:20 Reading Location: [facility] B1 C013W Consult Reading Room Procedure Note Interface, External Ris In - 10/05/2018 7:13 PM DRAFTER DETAIL FINAL REPORT AP view of the chest dated 10/05/2018 CLINICAL INFORMATION: chest discomfort Comment: Heart is normal in size. Pulmonary vasculature is unremarkable. Lungs are clear. No pulmonary infiltrate or pleural effusion is present. Impression: No active cardiopulmonary disease. Signed: Denisse Martinez MD Report Verified Date/Time: 10/05/2018 19:11:20 Reading Location: [facility] B1 C013W Consult Reading Room Performing Organization Address City/State/Zipcode Phone Number [employer] * ECG/EKG Interpretation (10/05/2018 4:50 PM DRAFTER DETAIL) Narrative Performed At Ranjit Ohara MD 10/07/20187:13 AM ECG/EKG Interpretation Date/Time: 10/05/2018 4:52 PM Performed by: Ranjit Ohara MD Authorized by: Ranjit Ohara MD The ECG was interpreted by ED physician. This ECG was not compared with previous ECG(s).The ECG is interpreted as paced. Rate is normal rate. Conduction: conduction normal. Abnormal conduction noted: non-specific intraventricular conduction delay. ST segments abnormal. T waves normal. [place] is normal. Other findings: no other findings. Clinical Impression: non-specific ECG * PT/PTT (10/05/2018 4:49 PM DRAFTER DETAIL) Protime 13.3 11.7 - 14.7 seconds [facility] INR 1.0 <=5.9 [facility] PTT 26.3 22.5 - 36.0 seconds [facility] Specimen Blood Narrative Performed At RECOMMENDED COUMADIN/WARFARIN INR THERAPY RANGES [facility] STANDARD DOSE: 2.0 - 3.0 Includes: PROPHYLAXIS for venous thrombosis, [facility] systemic embolization; TREATMENT for venous thrombosis and/or pulmonary embolus. HIGH RISK: Target INR is 2.5-3.5 for patients with mechanical heart valves. Performing Organization Address [facility] Cent[facility]ode Phone Number [address] [address] [facility] * B-type Natriuretic Factor (BNP) (10/05/2018 4:49 PM DRAFTER DETAIL) BNP 11 0 - 100 pg/mL [facility] Specimen Blood Performing Organization Address City/[facility]/Zipcode Phone Number [address] [address] [facility] * Cardiac Enzymes - CPK (10/05/2018 4:49 PM DRAFTER DETAIL) Total CK 206 (H) 29 - 200 U/L [facility] Specimen Blood Performing Organization Address [facility] Centercode Phone Number [place] [id number] [place] [address] [phone] [place] [address] after 03/14/2018 Insurance Payer Benefit Subscriber ID Type Phone Address Plan / Group [employer] - MGD [employer] HMO xxxxxxxxx HMO/POS CARE POS SELECT CHOICE Advance Directives For more information, please contact: [address] [address] Date Inactivated Comments Code Status Date Activated Full Code 10/05/2018 6:51 PM This code status was determined by: Patient
--- OUTSIDE RECORDS SUMMARY | 2019-03-15 12:16 | XMS REPORT ---
Author Author [facility] Address Unknown Phone Unavailable Care Team Providers Care Faith Healer Name Role Phone Sb SINGH Unavailable Unavailable Problems This patient has no known problems. Allergies, Adverse Reactions, Alerts This patient has no known allergies or adverse reactions. Medications This patient has no known medications. Results Test Description Test Time Test Comments Text Results Atomic Results Result Comments POCT-GLUCOSE METER 2018-10-07 08:03:00 POC-GLUCOSE METER (BEAKER) (test frpq=1949) 133 mg/dL 70-110 TESTED AT [facility] [address] [facility] [address] BASIC METABOLIC [id number] 06:48:00* Test Item Value Reference Range Comments SODIUM (BEAKER) (test cjwv=951) 141 meq/L 136-145 POTASSIUM (BEAKER) (test smzm=791) 3.9 meq/L 3.5-5.1 CHLORIDE (BEAKER) (test zgui=152) 107 meq/L 98-107 CO2 (BEAKER) (test semt=381) 27 meq/L 22-29 BLOOD UREA NITROGEN (BEAKER) (test lzjg=931) 13 mg/dL 7-21 CREATININE (BEAKER) (test xzep=795) 0.98 mg/dL 0.57-1.25 GLUCOSE RANDOM (BEAKER) (test kdmg=686) 136 mg/dL 70-105 CALCIUM (BEAKER) (test tnvg=390) 8.8 mg/dL 8.4-10.2 EGFR (BEAKER) (test wfrr=1275) 80 mL/min/1.73 sq m ESTIMATED GFR IS NOT ACCURATE CREATININE CLEARANCE IN PREDICTING GLOMERULAR FILTRATION RATE. ESTIMATED GFR IS NOT APPLICABLE FOR DIALYSIS PATIENTS. [id number] 06:39:00* Test Item Value Reference Range Comments PARTIAL THROMBOPLASTIN TIME (BEAKER) (test iqoy=630) 89.9 seconds 22.5-36.0 CT, BRAIN, WITHOUT [id number] 01:39:00FINAL REPORT CT, BRAIN, WITHOUT CONTRAST CLINICAL INDICATION: dizziness COMPARISON: None TECHNIQUE: Noncontrast axial CT imaging of the brain and skull. DOSE REDUCTION: Dose modulation, iterative reconstruction, and/or weight-based adjustment of the mA/kV was utilized to reduce the radiation dose to as low as reasonably achievable. FINDINGS:No intracranial hemorrhage, midline shift or mass effect. Midline structures are normally developed. Mild chronic microvascular ischemic changes of the periventricular and subcortical white m atter present. Punctate focus of mineralization is identified adjacent to the le ft lateral ventricle, of uncertain significance but perhaps related to prior gra nulomatous disease or intraventricular infection. The vasogenic edema to suggest acute infection. No hydrocephalus. Orbits are within normal limits. No obstruct regina paranasal sinus disease. IMPRESSION: No acute intracranial findings If ther e is persistent clinical concern for intracranial pathology, MR examination is r ecommended for further characterization. Signed: Reagan Leija [facility], [place] Date/Time: 10/07/2018 01:39:44 Reading Location: [address] Neuro Reading Room [id number] 00:22:00* Test Item Value Reference Range Comments PARTIAL THROMBOPLASTIN TIME (BEAKER) (test mbep=806) 70.5 seconds 22.5-36.0 HEMOGLOBIN [id number] 22:13:00* Test Item Value Reference Range Comments HEMOGLOBIN A1C (BEAKER) (test mwth=997) 6.4 % 4.3-6.1 POCT-GLUCOSE [id number] 21:11:00* Test Item Value Reference Range Comments POC-GLUCOSE METER (BEAKER) (test erqt=2544) 169 mg/dL 70-110 TESTED AT [facility] [address] [facility] [address] [id number] 18:07:00* Test Item Value Reference Range Comments PARTIAL THROMBOPLASTIN TIME (BEAKER) (test qbvs=264) 52.4 seconds 22.5-36.0 POCT-GLUCOSE [id number] 17:51:00* Test Item Value Reference Range Comments POC-GLUCOSE METER (BEAKER) (test zgnq=4387) 126 mg/dL 70-110 TESTED AT [facility] [address] [facility] [address] PET, CARDIAC PERFUSION MULTIPLE STUDIES, REST AND [id number] 17:01:00 Reason for exam:->chest painFINAL REPORT PROCEDURE: Rest/Stress MYOCARDIAL PERFUSION PET with regadenoson\XA9\ CPT CODE: 47211 INDICATION: Chest pain HISTORY: Cardiac risk factors: [...] was stopped for predetermined endpoint. The patient expe rienced dyspnea; treatment was not required. Preliminary ECG evaluation revealed normal sinus rhythm, nonspecific ST and T wave abnormality at rest and no ische emery changes with stress. (Final ECG interpretation and other stress and monitori ng data are reported separately by Cardiology.) IMAGING FINDINGS: Study rica lity is good. Images obtained after rest and stress injections show normal LV ac tivity. LV and RV volumes appear normal. Gated images obtained at rest and with stress show normal LV wall motion and thickening. LVEF at rest is 69%. LVEF at s tress is greater than 70%. IMPRESSION: 1. Normal study. 2. Appropriate phar macologic stress. 3. Normal myocardial perfusion. 4. Normal resting LV functio n. No deterioration of function is noted with pharmacologic stress. 5. Normal e xtracardiac tracer distribution. 6. The previous [facility] study on 07/10/2017 was a lso normal. NONINVASIVE RISK STRATIFICATION: The above findings are considered low risk (<1% annual mortality rate) based on the following criterion:- Normal or small myocardial perfusion defect at rest or with stress(JACC. 2012;59(9):857-81.) Signed: Austin Garcia MDReport Verified Date/Time: 10/06/2018 17:01:02 Reading Location: [address] [facility] Reading Room D DRUG SCREEN, [id number] 16:30:00* Test Item Value Reference Range Comments BARBITURATE URINE (BEAKER) (test zidt=961) Negative Negative BENZODIAZEPINE SCREEN URINE (BEAKER) (test crna=041) Negative Negative COCAINE (METAB.) SCREEN (BEAKER) (test bltf=4161) Negative Negative METHADONE SCREEN (BEAKER) (test juoy=2146) Negative Negative OPIATE SCREEN URINE (BEAKER) (test yyui=136) Negative Negative CANNABINOID SCREEN URINE (BEAKER) (test hpcc=024) Negative Negative AMPH/METHAMPH SCREEN (BEAKER) (test urwi=0674) Negative Negative PHENCYCLIDINE SCREEN URINE (BEAKER) (test gdth=678) Negative Negative OXYCODONE SCREEN URINE (BEAKER) (test mnml=3400) Negative Negative DRUG CUTOFF CONC.Cocaine 300 ng/mL Cannabinoid 50 ng/mL Benzodiazepine 200 ng/mLBarbiturate 200 ng/mLPh encyclidine 25 ng/mLOpiate 300 ng/mLMethadone 300 ng/mLAmphetamine/ 1000 ng/mL MethamphetamineOxycodone 300 ng/mLThis assay provides an unconfirmed qualitative test result for the cli nical management of patients in emergency situations. Chain of custody not maint ained. Some myog-svf-lyepvgq medications, as well as adulterants, may cause inac curate results. Clinical correlation should be applied. A more comprehensive nydia g screen or confirmation of a detected drug may be performed upon request.CBC W/PLT COUNT & AUTO [id number] 06:55:00* Test Item Value Reference Range Comments WHITE BLOOD CELL COUNT (BEAKER) (test bbno=145) 5.9 K/ L 3.5-10.5 RED BLOOD CELL COUNT (BEAKER) (test gtur=429) 4.64 M/ L 4.63-6.08 HEMOGLOBIN (BEAKER) (test ohny=734) 14.6 GM/DL 13.7-17.5 HEMATOCRIT (BEAKER) (test dtff=972) 43.0 % 40.1-51.0 MEAN CORPUSCULAR VOLUME (BEAKER) (test znqg=985) 92.7 fL 79.0-92.2 MEAN CORPUSCULAR HEMOGLOBIN (BEAKER) (test cqva=788) 31.5 pg 25.7-32.2 MEAN CORPUSCULAR HEMOGLOBIN CONC (BEAKER) (test iuxo=108) 34.0 GM/DL 32.3-36.5 RED CELL DISTRIBUTION WIDTH (BEAKER) (test jukz=993) 12.6 % 11.6-14.4 PLATELET COUNT (BEAKER) (test vatx=960) 180 K/CU MM 150-450 MEAN PLATELET VOLUME (BEAKER) (test sxqz=980) 9.2 fL 9.4-12.4 NUCLEATED RED BLOOD CELLS (BEAKER) (test uvtt=290) 0 /100 WBC 0-0 NEUTROPHILS RELATIVE PERCENT (BEAKER) (test jjjk=667) 40 % LYMPHOCYTES RELATIVE PERCENT (BEAKER) (test ehhp=143) 46 % MONOCYTES RELATIVE PERCENT (BEAKER) (test frlt=898) 9 % EOSINOPHILS RELATIVE PERCENT (BEAKER) (test sueu=098) 4 % BASOPHILS RELATIVE PERCENT (BEAKER) (test knmf=787) 1 % NEUTROPHILS ABSOLUTE COUNT (BEAKER) (test lrya=606) 2.35 K/ L 1.78-5.38 LYMPHOCYTES ABSOLUTE COUNT (BEAKER) (test rqgj=246) 2.66 K/ L 1.32-3.57 MONOCYTES ABSOLUTE COUNT (BEAKER) (test hupc=579) 0.52 K/ L 0.30-0.82 EOSINOPHILS ABSOLUTE COUNT (BEAKER) (test guff=014) 0.25 K/ L 0.04-0.54 BASOPHILS ABSOLUTE COUNT (BEAKER) (test exth=726) 0.04 K/ L 0.01-0.08 IMMATURE GRANULOCYTES-RELATIVE PERCENT (BEAKER) (test ktei=7991) 1 % 0-1 [id number] 06:53:00* Test Item Value Reference Range Comments MAGNESIUM (BEAKER) (test ltxf=506) 2.5 mg/dL 1.6-2.6 Specimen slightly hemolyzed BASIC METABOLIC [id number] 06:53:00* Test Item Value Reference Range Comments SODIUM (BEAKER) (test wpjo=585) 141 meq/L 136-145 POTASSIUM (BEAKER) (test plgb=073) 4.3 meq/L 3.5-5.1 Specimen slightly hemolyzed CHLORIDE (BEAKER) (test lnjz=909) 106 meq/L 98-107 CO2 (BEAKER) (test maxn=308) 29 meq/L 22-29 BLOOD UREA NITROGEN (BEAKER) (test kbon=399) 13 mg/dL 7-21 CREATININE (BEAKER) (test jbqx=629) 1.01 mg/dL 0.57-1.25 Specimen slightly hemolyzed GLUCOSE RANDOM (BEAKER) (test snip=051) 101 mg/dL 70-105 CALCIUM (BEAKER) (test oufd=815) 9.1 mg/dL 8.4-10.2 EGFR (BEAKER) (test nwrh=9003) 78 mL/min/1.73 sq m ESTIMATED GFR IS NOT ACCURATE CREATININE CLEARANCE IN PREDICTING GLOMERULAR FILTRATION RATE. ESTIMATED GFR IS NOT APPLICABLE FOR DIALYSIS PATIENTS. LIPID [id number] 06:53:00* Test Item Value Reference Range Comments TRIGLYCERIDES (BEAKER) (test obva=798) 156 mg/dL Specimen slightly hemolyzed CHOLESTEROL (BEAKER) (test vyiu=186) 140 mg/dL Specimen slightly hemolyzed HDL CHOLESTEROL (BEAKER) (test qasz=877) 36 mg/dL LDL CHOLESTEROL CALCULATED (BEAKER) (test qkqi=156) 73 mg/dL Triglyceride Reference Range: Low Risk <150 Borderline 150-199 High Risk 200-499 Very High Risk >=500Cholesterol Reference Range: Low Risk <200 Borderline 200-239 High Risk >240HDL Cholesterol Reference Range: Low Risk >=60 High Risk <40LDL Cholesterol Reference Range: Optimal <100 Near Optimal 100-129 Borderline 130-159 High 160-189 Very High >=190 HEPATIC FUNCTION [id number] 06:53:00* Test Item Value Reference Range Comments TOTAL PROTEIN (BEAKER) (test redd=175) 6.6 gm/dL 6.0-8.3 Specimen slightly hemolyzed ALBUMIN (BEAKER) (test gnan=3640) 3.7 g/dL 3.5-5.0 Specimen slightly hemolyzed BILIRUBIN TOTAL (BEAKER) (test amln=609) 1.2 mg/dL 0.2-1.2 Specimen slightly hemolyzed BILIRUBIN DIRECT (BEAKER) (test zbuu=072) 0.4 mg/dL 0.1-0.5 Specimen slightly hemolyzed ALKALINE PHOSPHATASE (BEAKER) (test asii=592) 36 U/L 40-150 AST (SGOT) (BEAKER) (test jveg=177) 19 U/L 5-34 Specimen slightly hemolyzed ALT (SGPT) (BEAKER) (test moay=695) 28 U/L 6-55 Specimen slightly hemolyzed [id number] 06:51:00* Test Item Value Reference Range Comments PARTIAL THROMBOPLASTIN TIME (BEAKER) (test nmoq=026) 77.9 seconds 22.5-36.0 TROPONIN [id number] 00:48:00* Test Item Value Reference Range Comments TROPONIN I (BEAKER) (test bysf=874) < ng/mL 0.00-0.03 Troponin I (TnI) levels must be interpreted in the context of the presenting sym ptoms and the clinical findings. Elevated TnI levels indicate myocardial damage, but are not specific for ischemic heart disease. Elevated TnI levels are seen in patients with other cardiac conditions (including myocarditis and congestive h eart failure), and slight TnI elevations occur in patients with other conditions , including sepsis, renal failure, acidosis, acute neurological disease, and per sistent tachyarrhythmia.[id number] 23:41:00* Test Item Value Reference Range Comments PARTIAL THROMBOPLASTIN TIME (BEAKER) (test uxat=157) 63.3 seconds 22.5-36.0 POCT-GLUCOSE [id number] 23:21:00* Test Item Value Reference Range Comments POC-GLUCOSE METER (BEAKER) (test olkq=2350) 188 mg/dL 70-110 TESTED AT [place] [id number] [facility] [address] RAD, CHEST, 1 VIEW, NON [id number] 19:11:00Reason for exam:->chest discomfortFINAL REPORT AP view of the chest dated 10/05/2018 CLINICAL INFORMATION: chest discomfort Comment: Heart is normal in size. Pulmonary vasculature is unremarkable. Lungs are clear. No pulmonary infiltrate or pleural effusion is present. Impression: No active cardiopulmonary disease. Signed: Denisse Martinez MDReport Verified Date/Time: 10/05/2018 19:11:20 Reading Location: [facility] B1 C013W Consult Reading Room B-TYPE NATRIURETIC FACTOR (BNP)2018-10-05 17:29:00* Test Item Value Reference Range Comments B-TYPE NATRIURETIC PEPTIDE (BEAKER) (test qruf=927) 11 pg/mL 0-100 TROPONIN [id number] 17:28:00* Test Item Value Reference Range Comments TROPONIN I (BEAKER) (test gvwv=183) < ng/mL 0.00-0.03 Troponin I (TnI) levels must be interpreted in the context of the presenting sym ptoms and the clinical findings. Elevated TnI levels indicate myocardial damage, but are not specific for ischemic heart disease. Elevated TnI levels are seen in patients with other cardiac conditions (including myocarditis and congestive h eart failure), and slight TnI elevations occur in patients with other conditions , including sepsis, renal failure, acidosis, acute neurological disease, and per sistent tachyarrhythmia.[id number] 17:22:00* Test Item Value Reference Range Comments MAGNESIUM (BEAKER) (test xxbj=026) 2.4 mg/dL 1.6-2.6 BASIC METABOLIC [id number] 17:22:00* Test Item Value Reference Range Comments SODIUM (BEAKER) (test uepm=932) 142 meq/L 136-145 POTASSIUM (BEAKER) (test rwes=259) 3.8 meq/L 3.5-5.1 CHLORIDE (BEAKER) (test bxgk=752) 108 meq/L 98-107 CO2 (BEAKER) (test ssak=327) 26 meq/L 22-29 BLOOD UREA NITROGEN (BEAKER) (test qukt=402) 12 mg/dL 7-21 CREATININE (BEAKER) (test dplk=984) 1.03 mg/dL 0.57-1.25 GLUCOSE RANDOM (BEAKER) (test tsbu=277) 99 mg/dL 70-105 CALCIUM (BEAKER) (test cnlp=481) 9.7 mg/dL 8.4-10.2 EGFR (BEAKER) (test feln=9171) 76 mL/min/1.73 sq m ESTIMATED GFR IS NOT ACCURATE CREATININE CLEARANCE IN PREDICTING GLOMERULAR FILTRATION RATE. ESTIMATED GFR IS NOT APPLICABLE FOR DIALYSIS PATIENTS. CREATINE KINASE (CK)2018-10-05 17:22:00* Test Item Value Reference Range Comments CREATINE KINASE TOTAL (BEAKER) (test tijm=933) 206 U/L 29-200 [id number] 17:15:00* Test Item Value Reference Range Comments PROTIME (BEAKER) (test zgpo=970) 13.3 seconds 11.7-14.7 INR (BEAKER) (test bkmx=101) 1.0 <=5.9 PARTIAL THROMBOPLASTIN TIME (BEAKER) (test zkch=395) 26.3 seconds 22.5-36.0 RECOMMENDED COUMADIN/WARFARIN INR THERAPY RANGESSTANDARD DOSE: 2.0 - 3.0 Inclu irene: PROPHYLAXIS for venous thrombosis, systemic embolization; TREATMENT for emperatriz ous thrombosis and/or pulmonary embolus.HIGH RISK: Target INR is 2.5-3.5 for pat ients with mechanical heart valves.CBC W/PLT COUNT & AUTO [id number] 17:09:00* Test Item Value Reference Range Comments WHITE BLOOD CELL COUNT (BEAKER) (test kkyz=723) 6.7 K/ L 3.5-10.5 RED BLOOD CELL COUNT (BEAKER) (test drlw=751) 4.93 M/ L 4.63-6.08 HEMOGLOBIN (BEAKER) (test mfgw=423) 15.5 GM/DL 13.7-17.5 HEMATOCRIT (BEAKER) (test ppic=234) 44.4 % 40.1-51.0 MEAN CORPUSCULAR VOLUME (BEAKER) (test mfjj=532) 90.1 fL 79.0-92.2 MEAN CORPUSCULAR HEMOGLOBIN (BEAKER) (test cvgu=262) 31.4 pg 25.7-32.2 MEAN CORPUSCULAR HEMOGLOBIN CONC (BEAKER) (test gjgl=931) 34.9 GM/DL 32.3-36.5 RED CELL DISTRIBUTION WIDTH (BEAKER) (test tvae=902) 12.3 % 11.6-14.4 PLATELET COUNT (BEAKER) (test tvnh=159) 215 K/CU MM 150-450 MEAN PLATELET VOLUME (BEAKER) (test ztig=117) 8.9 fL 9.4-12.4 NUCLEATED RED BLOOD CELLS (BEAKER) (test olps=145) 0 /100 WBC 0-0 NEUTROPHILS RELATIVE PERCENT (BEAKER) (test mqkc=432) 51 % LYMPHOCYTES RELATIVE PERCENT (BEAKER) (test alqa=310) 38 % MONOCYTES RELATIVE PERCENT (BEAKER) (test htoj=242) 9 % EOSINOPHILS RELATIVE PERCENT (BEAKER) (test yjmo=969) 2 % BASOPHILS RELATIVE PERCENT (BEAKER) (test jqzs=722) 1 % NEUTROPHILS ABSOLUTE COUNT (BEAKER) (test rkhk=440) 3.37 K/ L 1.78-5.38 LYMPHOCYTES ABSOLUTE COUNT (BEAKER) (test zxut=344) 2.53 K/ L 1.32-3.57 MONOCYTES ABSOLUTE COUNT (BEAKER) (test voto=395) 0.58 K/ L 0.30-0.82 EOSINOPHILS ABSOLUTE COUNT (BEAKER) (test opzc=636) 0.13 K/ L 0.04-0.54 BASOPHILS ABSOLUTE COUNT (BEAKER) (test qksn=407) 0.04 K/ L 0.01-0.08 IMMATURE GRANULOCYTES-RELATIVE PERCENT (BEAKER) (test mgpc=3954) 0 % 0-1 PET, CARDIAC PERFUSION MULTIPLE STUDIES, REST AND [id number] 15:52:00 Reason for Exam:->Atrial flutter unspecified typeReason for Exam:->Coronary artery disease involving [place] coronary arteryFINAL REPORT PROCEDURE: Rest/Stress MYOCARDIAL PERFUSION PET with regadenoson\XA9\ CPT CODE: 13480 INDICATION: Atrial flutter HISTORY: Cardiac risk factors: Hypertension, lipid abnormality. Other cardiovascular history: ND, coronary artery stent. Recent cardiac symptoms: Not specified. Current cardiovascular-related medications: Aspirin, Crestor, losartan, me toprolol, Plavix. PROTOCOL: Limited low-dose CT imaging was performed for at tenuation correction. 40 mCi of Rb-82 chloride was injected iv at rest, and gate d PET (positron emission tomography) images were obtained. Subsequently, 40 mCi of Rb-82 chloride was injected iv at expected peak pharmacologic effect, and gat ed PET images were obtained. PRELIMINARY STRESS TEST DATA FROM NONINVASIVE CARD IOLOGY: Pharmacologic stress was by 10-second iv infusion of 0.4 mg of regad enoson. Radiotracer was injected 30 seconds after start of stress. Heart rate wa s 79 beats/min at rest and 105 beats/min (62% of MPHR) at tracer injection. BP w as 124/78 mmHg at rest and 133/91 mmHg at tracer injection. Stress was stopped f or predetermined endpoint. The patient experienced dyspnea; treatment was not re quired. Preliminary ECG evaluation revealed sinus rhythm at rest and no ischemic changes with stress. (Final ECG interpretation and other stress and monitoring data are reported separately by Cardiology.) IMAGING FINDINGS: Study qualit y is good. Images obtained after rest and stress injections show normal LV activ ity. LV and RV volumes appear normal. Gated images obtained at rest and with st ress show normal LV wall motion and thickening. LVEF at rest is 65%. LVEF at st ress is greater than 70%. IMPRESSION: 1. Normal study. 2. Appropriate pharm acologic stress. 3. Normal myocardial perfusion. 4. Normal resting LV function . Normal stress function. 5. Normal extracardiac tracer distribution. 6. No pr evious [facility] study for comparison. NONINVASIVE RISK STRATIFICATION: The above findings are considered low risk (<1% annual mortality rate) based on the following criterion:- Normal or small myocardial perfusion defect at rest or with stressJACC. 2012;59(9):857-81.) Signed: Sathish Lopez Verified Date/Time: 07/10/2017 15:52:18 Reading Location: [address] Reading Room
--- NOTE | 2019-03-15 15:37 | Operative Report ---
DATE OF PROCEDURE: 03/15/2019 SURGEON: Amilcar Voss MD PROCEDURE: Esophagogastroduodenoscopy with biopsies. INDICATIONS FOR EGD: Acid reflux, upper abdominal pain, bloating. MEDICATIONS: The patient was done under MAC, please see anesthesiologist's note. PROCEDURE IN DETAIL: With the patient in left lateral decubitus position, a flexible fiberoptic Olympus gastroscope was introduced into the esophagus under direct visualization without any difficulty. There was some patchy erythema noted in the distal esophagus. A minute tongue of velvety red mucosa was noted to extend proximally from the GE junction and that was biopsied. The scope was then advanced with ease into the stomach and mucosa overlying the antrum and whatever was visualized of the body revealed some patchy intense erythema and moderate edema. A large amount of retained undigested food was noted in the stomach precluding visualization of approximately the proximal two-thirds of the body along the greater curvature as well as a significant part of the fundus. Biopsies were obtained and sent to stain for H pylori. Pylorus appeared to be of normal contour and shape, it was intubated with ease and the scope was advanced all the way to the second portion of the duodenum. Biopsies were obtained from the second portion and the duodenal bulb to rule out sprue. The scope was then withdrawn back into the stomach and retroflexed and the cardia appeared to be within normal limits. Whatever was visualized of the fundus appeared to be within normal limits. The scope was then straightened out, it was subsequently withdrawn. Three minute nodules were noted approximately in the mid esophagus and the way out and those were biopsied. The patient tolerated the procedure well. IMPRESSION: 1. Distal esophagitis, mild. 2. Esophageal nodules minute, mid esophagus biopsied. 3. Rule out Jacob's. 4. Large amount of retained undigested food in the stomach. 5. Gastritis, biopsied, biopsies sent to stain for Helicobacter pylori. 6. Rule out sprue. PLAN: Follow up histology. Initiate Protonix 40 mg one p.o. q.a.m. a.c. Amilcar Voss MD [facility] [place] /[id number] cc: Mickey Foy MD
[2019-03-15 15:45] VITALS: BP 123/90
== END | disposition home or self-care (01) ==
LOC: OR 12:08
PROVIDERS: ATTEND Internal Medicine Gastroenterology
DX: K20.9 Esophagitis, unspecified (principal); A04.8 Other specified bacterial intestinal infections; K29.50 Unspecified chronic gastritis without bleeding; K21.9 Gastro-esophageal reflux disease without esophagitis; K22.8 Other specified diseases of esophagus; K31.89 Other diseases of stomach and duodenum; I10 Essential (primary) hypertension; I25.10 Atherosclerotic heart disease of native coronary artery without angina pectoris; E11.9 Type 2 diabetes mellitus without complications; I25.2 Old myocardial infarction; Z88.8 Allergy status to other drugs, medicaments and biological substances; Z01.810 Encounter for preprocedural cardiovascular examination; Z01.812 Encounter for preprocedural laboratory examination; Z79.02 Long term (current) use of antithrombotics/antiplatelets; Z79.82 Long term (current) use of aspirin; Z79.84 Long term (current) use of oral hypoglycemic drugs
CPT/HCPCS: 36415 ×2; 43239; 82948; 85025; 93005; J1200; J2250; J2704; J3010

== ENCOUNTER → 2019-04-26 | Day surgery (SDC) | payer OTHER ==
[2019-04-23 13:38] LABS: BASOPHILS % 0.6 % (0.0-1.0); EOSINOPHILS # (AUTO) 0.1 (0.0-0.4); EOSINOPHILS % 2.1 % (0.0-6.0); HEMATOCRIT 41.6 % (38.2-49.6); HEMOGLOBIN 14.2 g/dL (14.0-18.0); LYMPHOCYTES # (AUTO) 2.1 (1.0-3.2); LYMPHOCYTES % 40.1 % (18.0-39.1); MEAN CORPUSCULAR HEMOGLOBIN 31.5 pg (28-32); MEAN CORPUSCULAR HGB CONC 34.1 g/dL (31-35); MEAN CORPUSCULAR VOLUME 92.2 fL (81-99); MONOCYTES # (AUTO) 0.4 (0.2-0.8); MONOCYTES % 6.9 % (4.4-11.3); NEUTROPHILS # (AUTO) 2.6 (2.1-6.9); NEUTROPHILS % 50.1 % (38.7-80.0); PLATELET COUNT 219 x10e3/uL (140-360); RED BLOOD COUNT 4.51 x10e6/uL (4.3-5.7); RED CELL DISTRIBUTION WIDTH 12.6 % (11.7-14.4)
[~2019-04-26] MED LIST changes: -DIPHENHYDRAMINE HCL INJ 50 MG/ML VIAL ONE; -FENTANYL CITRATE/PF 100MCG/2 ML INJ ONE; +GLUCAGON FOR INJ 1 MG VIAL ONE; +HYOSCYAMINE 0.125 MG TAB ONE; +LIDOCAINE HCL 2% LOCAL INJ 5 ML SDV VIAL INJ ONE; +PROPOFOL IV EMULSION 10 MG/ML 20 ML VIAL ONE
--- OUTSIDE RECORDS SUMMARY | 2019-04-26 09:39 | XMS REPORT | Clinical Summary ---
Author Author [facility] Address Unknown Phone Unavailable Care Team Providers Care Egg Crater Name Role Phone Mickey Foy MD PCP [...] Chest pain 10/07/2018 Coronary artery disease involving [place] coronary artery of [place] heart 10/07/2018 without angina pectoris Encounters Care Team Description Date Type Specialty Cortez Chambers MD Atherosclerosis of coronary artery of [place] heart with angina pectoris, unspecified vessel or lesion type (HCC) (Primary Dx) 10/09/2018 Outside Orders Central Scheduling System, Provider Not In 10/09/2018 Outside Orders Central Scheduling Vu, Trien B., MD Stanton, Fang-Monica, MD Unstable angina (HCC) (Primary Dx); Coronary artery disease involving [place] coronary artery, angina presence unspecified, unspecified whether [place] or transplanted heart; Hypertension, unspecified type; History of diabetes mellitus; Lightheadedness; Unstable angina pectoris (HCC) 10/05/2018 Hospital Cardiac Intensive Care - Encounter 10/07/2018 10/05/2018 Orders Only General Internal Medicine 10/05/2018 Travel after 04/25/2018 Social History Date Tobacco Use Types Packs/Day Years Used Never Assessed Sex Assigned at Date Recorded Not on file Industry Job Start Date Occupation Not on file Not on file Not on file Travel End Travel History Travel Start No recent travel history available. Last Filed Vital Signs Time Taken Vital Sign Reading 10/07/2018 11:00 AM HOME COORDINATOR Blood Pressure 109/76 10/07/2018 12:00 PM HOME COORDINATOR Pulse 71 10/07/2018 8:00 AM HOME COORDINATOR Temperature 36.7 C (98 F) 10/07/2018 12:00 PM HOME COORDINATOR Respiratory Rate 15 10/07/2018 12:00 PM HOME COORDINATOR Oxygen Saturation 97% 10/05/2018 5:23 PM HOME COORDINATOR Inhaled Oxygen 96% Concentration 10/07/2018 6:00 AM HOME COORDINATOR Weight 94.1 kg (207 lb 7.3 oz) 10/05/2018 4:36 PM HOME COORDINATOR Height 172.7 cm (5' 8") 10/07/2018 6:00 AM HOME COORDINATOR Body Mass Index 31.54 Plan of Treatment Not on file Procedures Comments Procedure Name Priority Date/Time Associated Diagnosis REPORT OF PROCEDURE - 10/24/2018 ENDOSCOPY SCAN 10:31 AM HOME COORDINATOR RHYTHM STRIP - SCAN 10/24/2018 10:31 AM HOME COORDINATOR POCT-GLUCOSE METER Routine 10/07/2018 8:01 AM HOME COORDINATOR APTT Routine 10/07/2018 6:05 AM HOME COORDINATOR BASIC METABOLIC PANEL (7) Routine 10/07/2018 6:05 AM HOME COORDINATOR APTT Routine 10/07/2018 12:[address] BRAIN WITHOUT IV Routine 10/06/2018 CONTRAST 11:57 PM HOME COORDINATOR POCT-GLUCOSE METER Routine 10/06/2018 9:06 PM HOME COORDINATOR POCT-GLUCOSE METER Routine 10/06/2018 5:49 PM HOME COORDINATOR APTT Routine 10/06/2018 5:35 PM HOME COORDINATOR RAPID DRUG SCREEN, URINE Routine 10/06/2018 3:34 PM HOME COORDINATOR ECHOCARDIOGRAM REPORT - 10/06/2018 SCAN 12:50 PM HOME COORDINATOR NM CARDIAC PET PERFUSION JOSHUA 10/06/2018 REST AND/OR STRESS 12:13 PM HOME COORDINATOR TREADMILL Routine 10/06/2018 TOLERANCE(NON-NUCLEAR 11:48 AM HOME COORDINATOR TREADMILL) ECG 12-LEAD Routine 10/06/2018 11:45 AM HOME COORDINATOR ECG 12-LEAD Routine 10/06/2018 11:45 AM HOME COORDINATOR Procedure Note - Interface, External Ris In - 10/06/2018 12:00 PM HOME COORDINATOR Ventricula r Rate 71 BPM Atrial Rate 71 BPM P-R Interval 198 ms QRS Duration 90 ms Q-T Interval 404 ms QTC Calculatio n(Bazett) 439 ms P [place] 68 degrees R [place] 33 degrees T [place] 69 degrees Normal sinus rhythm Nonspecifi c ST and T wave abnormalit y Abnormal ECG CBC W/PLT COUNT & AUTO Routine 10/06/2018 DIFFERENTIAL 6:12 AM HOME COORDINATOR APTT Routine 10/06/2018 6:12 AM HOME COORDINATOR CBC W/PLT COUNT & AUTO Routine 10/06/2018 DIFFERENTIAL 6:12 AM HOME COORDINATOR MAGNESIUM Routine 10/06/2018 6:12 AM HOME COORDINATOR LIPID PANEL Routine 10/06/2018 6:12 AM HOME COORDINATOR HEMOGLOBIN A1C AP Routine 10/06/2018 6:12 AM HOME COORDINATOR HEPATIC FUNCTION PANEL Routine 10/06/2018 6:12 AM HOME COORDINATOR BASIC METABOLIC PANEL (7) Routine 10/06/2018 6:12 AM HOME COORDINATOR 2D ECHO W/ DOPPLER Routine 10/06/2018 (CW/PW/COLOR) 3:04 AM HOME COORDINATOR CAROTID DOPPLER BILATERAL Routine 10/05/2018 11:29 PM HOME COORDINATOR APTT Routine 10/05/2018 11:19 PM HOME COORDINATOR TROPONIN I Routine 10/05/2018 11:19 PM HOME COORDINATOR POCT-GLUCOSE METER Routine 10/05/2018 11:17 PM HOME COORDINATOR XR CHEST 1 VIEW STAT 10/05/2018 PORTABLE/BEDSIDE 5:22 PM HOME COORDINATOR ED ECG INTERPRETATION Routine 10/05/2018 4:50 PM HOME COORDINATOR CBC W/PLT COUNT & AUTO STAT 10/05/2018 DIFFERENTIAL 4:49 PM HOME COORDINATOR CREATINE KINASE (CK) STAT 10/05/2018 4:49 PM HOME COORDINATOR B-TYPE NATRIURETIC FACTOR STAT 10/05/2018 (BNP) 4:49 PM HOME COORDINATOR PT/APTT STAT 10/05/2018 4:49 PM HOME COORDINATOR CBC W/PLT COUNT & AUTO STAT 10/05/2018 DIFFERENTIAL 4:49 PM HOME COORDINATOR TROPONIN I STAT 10/05/2018 4:49 PM HOME COORDINATOR MAGNESIUM STAT 10/05/2018 4:49 PM HOME COORDINATOR BASIC METABOLIC PANEL (7) STAT 10/05/2018 4:49 PM HOME COORDINATOR ECG 12-LEAD Routine 10/05/2018 4:40 PM HOME COORDINATOR Procedure Note - Interface, External Ris In - 10/05/2018 5:08 PM HOME COORDINATOR Ventricula r Rate 87 BPM Atrial Rate 87 BPM P-R Interval 166 ms QRS Duration 90 ms Q-T Interval 364 ms QTC Calculatio n(Bazett) 438 ms P [place] 35 degrees R [place] -55 degrees T [place] -4 degrees Normal sinus rhythm Indetermin ate axis Inferior infarct , age undetermin ed Anterolate ral infarct , age undetermin ed Abnormal ECG ECG 12-LEAD STAT 10/05/2018 4:40 PM HOME COORDINATOR after 04/25/2018 Results * EKG-SCANNED (10/24/2018 10:31 AM HOME COORDINATOR) Narrative Performed At * RHYTHM STRIP - SCAN (10/24/2018 10:31 AM HOME COORDINATOR) Narrative Performed At * POC-Glucose meter (10/07/2018 8:01 AM HOME COORDINATOR) Only the most recent of 4 results within the time period is included. POC-Glucose Meter 133 (H)Comment: TESTED AT 70 - 110 mg/dL [address] [address] Specimen Blood Performing Organization Address City/[facility] Phone Number [address] [address] [facility] * aPTT (10/07/2018 6:05 AM HOME COORDINATOR) Only the most recent of 5 results within the time period is included. PTT 89.9 (H) 22.5 - 36.0 seconds [facility] Specimen Blood Performing Organization Address City/[facility] Cent[facility]ode Phone Number [phone] [facility] * Basic Metabolic Panel (10/07/2018 6:05 AM HOME COORDINATOR) Only the most recent of 3 results within the time period is included. Sodium 141 136 - 145 meq/L [facility] Potassium 3.9 3.5 - 5.1 meq/L [facility] Chloride 107 98 - 107 meq/L [facility] CO2 27 22 - 29 meq/L [facility] BUN 13 7 - 21 mg/dL [facility] Creatinine 0.98 0.57 - 1.25 mg/dL [facility] Glucose 136 (H) 70 - 105 mg/dL [facility] Calcium 8.8 8.4 - 10.2 mg/dL [facility] EGFR 80Comment: ESTIMATED GFR IS mL/min/1.73 sq m [facility] NOT ACCURATE CREATININE [facility] CLEARANCE IN PREDICTING GLOMERULAR FILTRATION RATE. ESTIMATED GFR IS NOT APPLICABLE FOR DIALYSIS PATIENTS. Specimen Blood Performing Organization Address City/State/Zipcode Phone Number [facility] [address] [place] [address] MEDICAL CENTER * CT brain without IV contrast (10/06/2018 11:57 PM HOME COORDINATOR) Specimen Narrative Performed At FINAL REPORT [employer] RIS CT, BRAIN, WITHOUT CONTRAST CLINICAL INDICATION:dizziness [...] MD Report Verified Date/Time:10/07/2018 01:39:44 Reading Location: [address] Neuro Reading Room Procedure Note Interface, External Ris In - 10/07/2018 1:41 AM HOME COORDINATOR FINAL REPORT CT, BRAIN, WITHOUT CONTRAST CLINICAL [...] characterization. Signed: Reagan Montez MD Report Verified Date/Time: 10/07/2018 01:39:44 Reading Location: [facility] C013V Neuro Reading Room Performing Organization Address [facility] Cent[facility]ode Phone Number GE RIS * Rapid drug screen, urine (10/06/2018 3:34 PM HOME COORDINATOR) Barbiturate Screen Negative Negative [facility] Benzodiazepine Screen Negative Negative [facility] Cocaine (Metab.) Screen Negative Negative [facility] Methadone Screen Negative Negative [facility] Opiate Screen Negative Negative [facility] Cannabinoid Screen Negative Negative [facility] Amph/Methamph Screen Negative Negative [facility] Phencyclidine Screen Negative Negative [facility] Oxycodone Screen Negative Negative [facility] Specimen Urine Narrative Performed At [facility] Cocaine 300 ng/mL [facility] Gcwmidpyaxu81 ng/mL Jwddcmdmedvoju441 ng/mL Barbiturate 200 ng/mL Txchfilkkgkiq50 ng/mL Oqbern684 ng/mL Methadone 300 ng/mL Amphetamine/ 1000 ng/mL Methamphetamine Oxycodone 300 ng/mL This assay provides an unconfirmed qualitative test result for the clinical management of patients in emergency situations. Chain of custody not maintained. Some tyrp-cwt-gllxwzu medications, as well as adulterants, may cause inaccurate results. Clinical correlation should be applied. A more comprehensive drug screen or confirmation of a detected drug may be performed upon request. Performing Organization Address City/[facility]/Zipcode Phone Number [facility] [address] [place] [address] [facility] * ECHOCARDIOGRAM REPORT - SCAN (10/06/2018 12:50 PM HOME COORDINATOR) Narrative Performed At * NM myocardial perfusion PET (rest and stress) (10/06/2018 12:13 PM HOME COORDINATOR) Specimen Narrative Performed At FINAL REPORT [email or web address] PROCEDURE: Rest/Stress MYOCARDIAL PERFUSION PET with regadenoson\\XA9\\ CPT CODE: 82767 INDICATION: Chest pain HISTORY: Cardiac risk factors: [...] stress.5. Normal extracardiac tracer distribution.6. The previous [facility] study on 07/10/2017 was also normal. NONINVASIVE RISK STRATIFICATION: The above findings are considered low risk (<1% annual mortality rate) based on the following criterion: - Normal or small myocardial perfusion defect at rest or with stress (JACC. 2012;59(9):054-23.) Signed: Austin Liao MD Report Verified Date/Time:10/06/2018 17:01:02 Reading Location: [address] P327[address] [employer] Reading Room Procedure Note Interface, External Ris In - 10/06/2018 5:03 PM HOME COORDINATOR FINAL REPORT PROCEDURE: Rest/Stress MYOCARDIAL PERFUSION PET with regadenoson\\XA9\\ CPT CODE: 08745 INDICATION: Chest pain HISTORY: Cardiac risk factors: [...] Normal extracardiac tracer distribution. 6. The previous [facility] study on 07/10/2017 was also normal. NONINVASIVE RISK STRATIFICATION: The above findings are considered low risk (<1% annual mortality rate) based on the following criterion: - Normal or small myocardial perfusion defect at rest or with stress (JAC. 2012;59(9):784-60.) Signed: Austin Liao MD Report Verified Date/Time: 10/06/2018 17:01:02 Reading Location: [address] Reading Room Performing Organization Address City/State/[facility] Phone Number [facility] * Treadmill tolerance(Non-Nuclear Treadmill) (10/06/2018 11:48 AM HOME COORDINATOR) Specimen Narrative Performed At Protocol Name Regadenoson [...] External Ris In - 10/08/2018 6:57 AM HOME COORDINATOR Protocol Name Regadenoson Time In Exercise Phase [...] on 10/08/2018 6:57:43 AM Performing Organization Address City/State/[facility] Phone Number [employer] DANIELLA * ECG 12 lead (10/06/2018 11:45 AM HOME COORDINATOR) Only the most recent of 2 results within the time period is included. Specimen Narrative Performed At Ventricular Rate 71 BPM [facility] [employer] Atrial Rate 71 BPM P-R Interval 198 ms QRS Duration 90 ms Q-T Interval 404 ms QTC Calculation(Bazett) 439 ms P [place] 68 degrees R [place] 33 degrees T [place] 69 degrees Normal sinus rhythm Nonspecific ST [...] External Ris In - 10/06/2018 2:42 PM HOME COORDINATOR Ventricular Rate 71 BPM Atrial Rate 71 BPM P-R Interval 198 ms QRS Duration 90 ms Q-T Interval 404 ms QTC Calculation(Bazett) 439 ms P [place] 68 degrees R [place] 33 degrees T [place] 69 degrees Normal sinus rhythm Nonspecific ST and T wave abnormality Abnormal ECG 05 Oct 2018 QRS amplitude decreased in the limb leads T waves are no longer negative inferior leads Nonspecific T wave abnormality improved in V5-V6 Most probably limb lead misplacement in the previous ECG Please repeat Confirmed by MD LUCAS, IRAIDA ([id number]) on 10/06/2018 2:41:56 PM Performing Organization Address [facility] Phone Number [employer] MUSE * CBC with platelet count + automated diff (10/06/2018 6:12 AM HOME COORDINATOR) Only the most recent of 2 results within the time period is included. WBC 5.9 3.5 - 10.5 K/L [facility] RBC 4.64 4.63 - 6.08 M/L [facility] Hemoglobin 14.6 13.7 - 17.5 GM/DL [facility] Hematocrit 43.0 40.1 - 51.0 % [facility] MCV 92.7 (H) 79.0 - 92.2 fL [facility] MCH 31.5 25.7 - 32.2 pg [facility] MCHC 34.0 32.3 - 36.5 GM/DL [facility] RDW 12.6 11.6 - 14.4 % [facility] Platelets 180 150 - 450 K/CU MM [facility] MPV 9.2 (L) 9.4 - 12.4 fL [facility] nRBC 0 0 - 0 /100 WBC [facility] % Neutros 40 % [facility] % Lymphs 46 % [facility] % Monos 9 % [facility] % Eos 4 % [facility] % Baso 1 % [facility] # Neutros 2.35 1.78 - 5.38 K/L [facility] # Lymphs 2.66 1.32 - 3.57 K/L [facility] # Monos 0.52 0.30 - 0.82 K/L [facility] # Eos 0.25 0.04 - 0.54 K/L [facility] # Baso 0.04 0.01 - 0.08 K/L [facility] Immature 1 0 - 1 % [facility] Granulocytes-Relative [facility] Specimen Blood Performing Organization Address City/State/Zipcode Phone Number [facility] [address] [place] [address] MEDICAL CENTER * Magnesium (10/06/2018 6:12 AM HOME COORDINATOR) Only the most recent of 2 results within the time period is included. Magnesium 2.5Comment: Specimen slightly 1.6 - 2.6 mg/dL [facility] hemolyzed [facility] Specimen Blood Performing Organization Address City/State/Zipcode Phone Number [facility] [address] [place] [phone] [facility] * Hemoglobin A1c (10/06/2018 6:12 AM HOME COORDINATOR) Hemoglobin A1C 6.4 (H) 4.3 - 6.1 % [facility] Specimen Blood Performing Organization Address [facility]/Zipcode Phone Number [place] [phone] [place] [address] [facility] * Hepatic function panel (10/06/2018 6:12 AM HOME COORDINATOR) Protein, Total 6.6Comment: Specimen slightly 6.0 - 8.3 gm/dL [facility] Albumin 3.7Comment: Specimen slightly 3.5 - 5.0 g/dL [facility] Total Bilirubin 1.2Comment: Specimen slightly 0.2 - 1.2 mg/dL [facility] Bilirubin, Direct 0.4Comment: Specimen slightly 0.1 - 0.5 mg/dL [facility] Alkaline Phosphatase 36 (L) 40 - 150 U/L [facility] AST 19Comment: Specimen slightly 5 - 34 U/L [facility] ALT 28Comment: Specimen slightly 6 - 55 U/L [facility] Specimen Blood Performing Organization Address City/State/Zipcode Phone Number [facility] [address] [place] [address] [facility] * Lipid panel (10/06/2018 6:12 AM HOME COORDINATOR) Triglycerides 156Comment: Specimen slightly mg/dL [facility] Cholesterol 140Comment: Specimen slightly mg/dL [facility] HDL 36 mg/dL [facility] LDL Calculated 73 mg/dL [facility] Specimen Blood Narrative Performed At Triglyceride Reference Range: [facility] Low Risk <150 [facility] [id number] High Risk 200-499 Very High Risk>=500 Cholesterol Reference Range: Low Risk <200 [id number] High Risk>240 HDL Cholesterol Reference Range: Low Risk >=60 High Risk <40 LDL Cholesterol Reference Range: Optimal<100 Near Kpqongg228-617 Jnhufkualh153-671 Zvrf518-723 Very High >=190 Performing Organization Address City/State/Zipcode Phone Number [facility] [address] [place] [address] MEDICAL CENTER * 2D Echo W/Doppler(CW/PW/Color) (10/06/2018 3:04 AM HOME COORDINATOR) Ejection Fraction [facility] Specimen Narrative Performed At Transthoracic Echocardiography Report (TTE) [facility] Demographics [facility] Patient NameYARIEL LEIVA RAULDate of Study10/06/2018 KINDRA Gender Male Visit [id number] Race Other [id number] Number Date of 1965 Shavon EID Physician STANTON GONZALEZ Age 53 year(s) SonographerSnagi Marshall RDCS, RVT Software Quality Assurance Specialist Gus Wagner, Physician Procedure Type of Study [...] External Ris In - 10/06/2018 12:21 PM HOME COORDINATOR Transthoracic Echocardiography Report (TTE) Demographics Patient Name REYES ONEIL JR Date of Study 10/06/2018 KINDRA Gender Male Visit Number [id number] Race Other Room Number 6102 Number Date of 1965 Referring Tobias EID Physician STANTON GONZALEZ Age 53 year(s) Health Care Administrator Cristiane Marshall [facility], RVT Software Quality Assurance Specialist Gus Salazar Interpreting Nilson Wagner, Physician Procedure [...] l/min/m^2 Performing Organization Address City/State/Zipcode Phone Number [facility] [employer] * Carotid doppler bilateral (10/05/2018 11:29 PM HOME COORDINATOR) Ejection Fraction [facility] [employer]CKESSON CPACS Specimen Impressions Performed At Right Impression [facility] 1. There is <50% diameter reduction (approximately 10% by 2-D measurement) MKIPICOON [employer] in the internal carotid artery with a [...] Performed At LAB - Carotid Duplex Study [facility] Demographics [facility] Patient Name YARIEL Victorino LEIVA of Study10/05/2018 KINDRA [id number] Age53 Visit Number [id number] Gender Male Accession Number [id number] Date of Birth1965 ReferringHeakatelynn Swan [id number] MD Jayde SonographerChas Montenegro Interpreting Meaghan Zuniga MD Physician Procedure Type of Study: Cerebral: Carotid, CAROTID DOPPLER, BILATERAL. Indications for Study:Lightheaded. Patient Status:Routine. Study Location:Portable. Technical Quality:Adequate visualization. Procedure Note Interface, External Ris In - 10/06/2018 2:40 PM HOME COORDINATOR PV LAB - Carotid Duplex Study Demographics Patient Name REYES ONEIL JR Date of Study 10/05/2018 KINDRA Age 53 Visit Number [id number] Gender Male Accession Number [id number] Date of 1965 Referring Tammy Herrera Room Number 6102 Physician Ulises MD Health Care Administrator Chas Montenegro Interpreting Meaghan Zuniga MD Physician [...] CPACS * Troponin I (10/05/2018 11:19 PM HOME COORDINATOR) Only the most recent of 2 results within the time period is included. Troponin I <0.01 0.00 - 0.03 ng/mL [facility] Specimen Blood Narrative Performed At Troponin I (TnI) levels must be interpreted in the context of the presenting [facility] symptoms and the clinical findings. Elevated TnI levels indicate myocardial [facility] damage, but are not specific for ischemic heart disease. Elevated TnI levels are seen in patients with other cardiac conditions (including myocarditis and congestive heart failure), and slight TnI elevations occur in patients with other conditions, including sepsis, renal failure, acidosis, acute neurological disease, and persistent tachyarrhythmia. Performing Organization Address City/State/Zipcode Phone Number [facility] [address] [place] [address] [facility] * XR chest 1 view portable / bedside (10/05/2018 5:22 PM HOME COORDINATOR) Specimen Narrative Performed At FINAL REPORT [email or web address] AP view of the chest dated 10/05/2018 CLINICAL INFORMATION: chest discomfort Comment:Heart is normal in size. Pulmonary vasculature is unremarkable. Lungs are clear. No pulmonary infiltrate or pleural effusion is present. Impression:No active cardiopulmonary disease. Signed: Denisse Martinez MD Report Verified Date/Time:10/05/2018 19:11:20 Reading Location: [facility] B1 C013W Consult Reading Room Procedure Note Interface, External Ris In - 10/05/2018 7:13 PM HOME COORDINATOR FINAL REPORT AP view of the chest dated 10/05/2018 CLINICAL INFORMATION: chest discomfort Comment: Heart is normal in size. Pulmonary vasculature is unremarkable. Lungs are clear. No pulmonary infiltrate or pleural effusion is present. Impression: No active cardiopulmonary disease. Signed: Denisse Martinez MD Report Verified Date/Time: 10/05/2018 19:11:20 Reading Location: [facility] B1 C013W Consult Reading Room Performing Organization Address City/State/Zipcode Phone Number [employer] * ECG/EKG Interpretation (10/05/2018 4:50 PM HOME COORDINATOR) Narrative Performed At Ranjit Ohara MD 10/07/20187:13 [...] delay. ST segments abnormal. T waves normal. [place] is normal. Other findings: no other findings. Clinical Impression: non-specific ECG * PT/PTT (10/05/2018 4:49 PM HOME COORDINATOR) Protime 13.3 11.7 - 14.7 seconds [facility] INR 1.0 <=5.9 [facility] PTT 26.3 22.5 - 36.0 seconds [facility] Specimen Blood Narrative Performed At RECOMMENDED COUMADIN/WARFARIN INR THERAPY RANGES [facility] STANDARD DOSE: 2.0 - 3.0 Includes: PROPHYLAXIS for venous thrombosis, [facility] systemic embolization; TREATMENT for venous thrombosis and/or pulmonary embolus. HIGH RISK: Target INR is 2.5-3.5 for patients with mechanical heart valves. Performing Organization Address [facility] Centercode Phone Number [address] [address] [facility] * B-type Natriuretic Factor (BNP) (10/05/2018 4:49 PM HOME COORDINATOR) BNP 11 0 - 100 pg/mL [facility] Specimen Blood Performing Organization Address City/[facility]/Zipcode Phone Number [address] [address] [facility] * Cardiac Enzymes - CPK (10/05/2018 4:49 PM HOME COORDINATOR) Total CK 206 (H) 29 - 200 U/L [facility] Specimen Blood Performing Organization Address [facility] [place]/[facility] Cent[facility]ode Phone Number [place] [phone] [place] [address] [phone] [place] [address] after 04/25/2018 Insurance Payer Benefit Subscriber ID Type Phone Address Plan / Group [employer] - MGD UNITED HMO xxxxxxxxx HMO/POS CARE POS SELECT CHOICE Advance Directives For more information, please contact: [address] [address] Date Inactivated Comments Code Status Date Activated Full Code 10/05/2018 6:51 PM This code status was determined by: Patient
[2019-04-26 13:30] VITALS: BP 104/84
--- NOTE | 2019-04-26 19:49 | Operative Report ---
DATE OF PROCEDURE: 04/26/2019 SURGEON: Amilcar Voss MD PROCEDURE: Esophagogastroduodenoscopy and colonoscopy with polypectomy. INDICATIONS FOR EGD: Nausea, belching, bloating. Large amount of retained undigested food in stomach on previous EGD. INDICATIONS FOR COLONOSCOPY: Surveillance colonoscopy, personal history of colon polyps. MEDICATIONS: The patient was done under MAC, please see anesthesiologist's note. PROCEDURE IN DETAIL: With the patient in left lateral decubitus position, flexible fiberoptic Olympus gastroscope was introduced into the esophagus under direct visualization without any difficulty. There was some patchy erythema noted in distal esophagus. A minute tongue of velvety red mucosa was noted, extending proximally from the GE junction. No biopsies were obtained as that was biopsied on a recent EGD. The scope was then advanced with ease into the stomach. Mucosa overlying the antrum and the body revealed some patchy erythema. The pylorus was of normal contour and shape, was intubated with ease and the scope was advanced all the way to the second portion of the duodenum. The scope was then withdrawn slowly. Mucosa overlying the proximal second portion and duodenal bulb grossly appeared to be within normal limits. The scope was then withdrawn back into the stomach and retroflexed mucosa overlying the fundus and cardia appeared to be within normal limits. The scope was then straightened out. It was subsequently withdrawn. The patient tolerated the procedure well. IMPRESSION: 1. Mild distal esophagitis. 2. Gastritis. PLAN: Increase Protonix to 40 mg one p.o. a.c. b.i.d. The patient was then turned around and after adequate lubrication of the anal canal, a flexible fiberoptic Olympus colonoscope was inserted into the rectum with ease and advanced all the way to the cecum. The scope was then withdrawn slowly. Mucosa overlying the cecum appeared to be within normal limits. One polyp was removed per cold snare polypectomy and another polyp was removed per hot biopsy forceps in the distal ascending colon. The transverse and descending appeared to be within normal limits. Diverticular disease was noted to involve the sigmoid colon. One polyp was hot biopsied from the sigmoid colon and polypectomy site was hemoclipped x2. A minute polyp in the proximal rectum was removed per hot biopsy forceps. The scope was then retroflexed into the distal rectum and small internal hemorrhoids were noted, none of which was actively bleeding. The scope was then straightened out. It was subsequently withdrawn. The patient tolerated the procedure well. IMPRESSION: 1. Ascending colon polyps x2, one snared and one hot biopsied. 2. Diverticulosis. 3. Sigmoid colon polyp, hot biopsied and site hemoclipped x2. 4. Rectal polyp, hot biopsied. 5. Internal hemorrhoids, none actively bleeding. PLAN: Follow up histology. Initiate high-fiber, low-fat diet. Initiate high-fiber supplement. The patient might benefit from a followup colonoscopy in 3 to 5 years. Amilcar Voss MD [facility] [place][id number] cc: Mickey Foy MD
== END | disposition home or self-care (01) ==
LOC: OR 09:25
PROVIDERS: ATTEND Internal Medicine Gastroenterology
DX: K29.70 Gastritis, unspecified, without bleeding (principal); K63.5 Polyp of colon; K62.1 Rectal polyp; K20.9 Esophagitis, unspecified; K21.9 Gastro-esophageal reflux disease without esophagitis; K31.89 Other diseases of stomach and duodenum; K57.30 Diverticulosis of large intestine without perforation or abscess without bleeding; K64.8 Other hemorrhoids; A04.8 Other specified bacterial intestinal infections; I25.10 Atherosclerotic heart disease of native coronary artery without angina pectoris; I25.2 Old myocardial infarction; I10 Essential (primary) hypertension; E78.5 Hyperlipidemia, unspecified; E11.9 Type 2 diabetes mellitus without complications; Z88.8 Allergy status to other drugs, medicaments and biological substances; Z01.812 Encounter for preprocedural laboratory examination; Z79.02 Long term (current) use of antithrombotics/antiplatelets; Z79.82 Long term (current) use of aspirin; Z79.84 Long term (current) use of oral hypoglycemic drugs; Z68.32 Body mass index [BMI] 32.0-32.9, adult; Z95.5 Presence of coronary angioplasty implant and graft
CPT/HCPCS: 36415 ×2; 43235; 45384; 45385; 82948; 85025; J1610; J2001; J2250; J2704 ×2; 45378

== ENCOUNTER → 2021-04-12 | Outpatient (CLI) | payer OTHER ==
[~2021-04-12] MED LIST changes: -GLUCAGON FOR INJ 1 MG VIAL ONE; -HYOSCYAMINE 0.125 MG TAB ONE; -LIDOCAINE HCL 2% LOCAL INJ 5 ML SDV VIAL INJ ONE; -MIDAZOLAM HCL 2 MG/2 ML VIAL ONE; -PROPOFOL IV EMULSION 10 MG/ML 20 ML VIAL ONE; -PROPOFOL IV EMULSION 10 MG/ML 50 ML VIAL ONE
== END ==
LOC: RAD 04-11 15:32
PROVIDERS: ATTEND Pediatrics Adolescent Medicine
DX: R05 Cough (principal)
CPT/HCPCS: 71046